=== PATIENT | female | born 1970 | race Caucasian/White ===

== ENCOUNTER 2025-03-07 09:03 | Outpatient (AMB) | payer OTHER, SELFPAY ==
--- NOTE | 2025-03-07 09:09 | A.SPINEOV_ITS ---
Vital Signs 03/07/25 09:16 Height 5 ft 5 in Weight 205 lb BMI 34.1 Intake Visit Reasons: sacroiliitis Intake Note: Ms. Calles is here today c/o Left sided leg pain. Database Marketing Manager Required: Yes Database Marketing Manager Services: Database Marketing Manager Present Database Marketing Manager Name: Rema Madrid LM Allergies No Known Allergies Allergy (Verified 03/07/25 09:16) Assessment & Plan Assessment & Plan (1) Lumbar radiculopathy: Code(s): M54.16 - Radiculopathy, lumbar region Category: Medical Plan Dear BIJAL Lopez, Thank you for referring Mary to our office today. She is a pleasant 54 year old female who comes in today for evaluation of left hip / leg pain. She reports this has been ongoing for about 2 years, and identifies an initial inciting incident of a work related injury. 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 This caused her severe acute low back pain shooting down her left lower extremity. She was subsequently evaluated in [facility] emergency department and referred to [facility] neurosurgery. She reports some relief of her left lumbar radiculopathy after being treated by [facility] neurosugery with microdiscectomy surgery. After surgery she had a recurrent of left low back / hip / leg pain. She was re- evaluated by [facility] neurosurgery who completed a re-do left L5-S1 microdiscectomy for recurrence of herniated disc. After this her left hip and leg pain persisted despite surgical attempts to resolve her pain. She therefore underwent Left SI joint injection with our colleagues at [facility] on 12/21/24 which provided 80% pain symptom relief x 1 week before return of symptoms. She also underwent left SI joint lateral branch block thereafter which provided 100% relief of her pain symptoms x 5 days. Left SI joint radiofrequency ablation was considered thereafter which was denied by her insurance company. She did have a left hip MRI which showed some small labral tears and some mild tendonopathy but did not show any other significant soft tissue / osseous pathology per the MRI of left hip completed at [place] on 11/14/24. When describing her pain today she states that it starts in her left posterior buttocks, shoots down her left posterior thigh, and travels all the way down to her left posterior calf / the bottom of her left foot. She experiences fairly severe posterior left calf cramping. She does report some burning / numbness associated with the pain. She has tried several different prescribed / OTC medications including Tylenol, no NSAIDs (on blood thinner, cannot take NSAIDs), Tizanidine, oral prednisone taper, short course Oxycodone, all without significant relief of smyptoms. PMH: Hx of blood clot found in liver, on Eliquis, Hx left L5-S1 microdiscectomy x 2 at [facility] (last surgery 09/17/24). HTN, Insomnia, Depression, Seasonal allergies, GERD. Social hx: Patient smokes about 8 cigarillos daily. Denies any other substance use. Medications: Gabapentin, Amlodipine, Zolpidem, Sertraline, Propanolol, Loratadine, Losartan, Acetaminophen, Omeprazole. Allergies: NKDA Physical exam: The patient has 4/5 strength with left-sided dorsiflexion and iliopsoas testing. The rest of her bilateral lower extremity strength is 5/5. She has no significant sensational deficits to light touch disclosed on examination. Her reflexes are 2+ intact. She ambulates with a slightly antalgic gait favoring the right side. (+) left-sided straight leg raise. (+) left SI joint compression test. (+) left-sided Andrew's. (-) Noe finger test. (-) Akhtar's. (-) clonus. Imaging review: MRI of the lumbar spine completed at [place] with gadolinium on 09/01/24 is a preoperative MRI before her recurrent disc herniation was operated on at [facility]. Therefore it is of very low utility for us. This shows a recurrent disc herniation at L5-S1 prior to surgery compression the left sided S1 nerve roots. Impression: Mary is a pleasant 54-year-old female who comes in today for evaluation of left hip and leg pain which has been persistent despite many different treatment attempts including multiple cortisone injections, and two microdiskectomy surgeries. When describing her pain it sounds like it is in a fairly classic S1 distribution on the left. This is highly concerning for recurrent disc herniation given that she had fairly severe compression of the left traversing S1 nerve root prior to surgery and has had had a recurrence of a disc herniation once already. Before attempting to begin discussion regarding SI joint fusion, or further interventions for the SI joint on the left hand side, I would like the patient to have a repeat lumbar MRI with gadolinium to evaluate for any continued nerve root compression on this side. If the MRI shows good decompression of the nerve roots, she may just have residual pain shooting down the left lower extremity, and we may consider subsequent conversations regarding SI joint treatment. However, we have to have a baseline postoperative lumbar MRI to ensure that there is not continued lumbar spine pathology contributing to her symptoms. It would be a shame to treat her left SI joint via fusion, then find out that she in fact has had a subsequent recurrent herniated disc. I will follow up with the patient once this MRI is complete. Thank you for allowing us to care for your patient. The total time spent with this visit with this patient was 45 minutes reviewing history, physical exam, MRI imaging review, and implementation of treatment plan or further diagnostic testing Harpreet Marcos MD,PhD [facility] Coding Level of Care Code New Pt Level 4 (45719) Diagnoses Lumbar radiculopathy M54.16
[2025-03-07 09:16] VITALS: BMI 34.1
--- OUTSIDE RECORDS SUMMARY | 2025-03-07 09:17 | XMS_ITS | Clinical Summary ---
Author Organization [facility] Address [address] [place] [address] Care Team Providers Care Adjunct Professor Of English Name Role Phone Jo Ann Falcon [facility] Primary Care Provider [phone] Surgical History Surgery Date Site/Laterality Comments TUBAL LIGATION PROCEDURE: HISTORICAL TUBAL LIGATION CHOLECYSTECTOMY PROCEDURE: CA CHOLECYSTECTOMY SECTION PROCEDURE: HISTORICAL DELIVERY CYSTOSCOPY 07/06/2018 Left PROCEDURE: HISTORICAL CYSTOSCOPY; COMMENT: LEFT URETEROSCOPY W/LASER LITHRIPSO AND STONE REMOVAL CYSTOSCOPY 07/06/2018 Right PROCEDURE: HISTORICAL CYSTOSCOPY; COMMENT: RIGHT SIDE ureteral dilation , right sided ureteral stent placement Medical History Medical History Date Comments HTN (hypertension) 1998 DX:HTN (hyper tension); COMMENT: on med Fibroid DX:Fibroid Ovarian cyst DX:Ovarian cyst Anxiety DX:Anxiety Depression DX:Depression History of kidney stones 2017 DX:Hist ory of kidney stones Family History Medical History Relation Name Comments Alzheimer's disease Mother Relation Name Status Comments Father Mother Social History Tobacco Use Types Packs/Day Years Used Date Smoking Tobacco: Every Day Smokeless Tobacco: Never Alcohol Use Standard Drinks/Week Comments No 0 (1 standard drink = 0.6 oz pur e alcohol) Comments Unknown Sex and Gender Information Value Date Recorded Sex Assigned at Not on file Legal Sex Female 7:34 PM EST Gender Identity Not on file Sexual Orientation Not on file Obstetrics History Plan of Treatment Health Maintenance Due Date Last Done Comments DTaP,Tdap,and Td Vaccines (1 - Tdap) 1991 Hepatitis B Vaccines (1 of 3 - 19+ 3-dose series) 1991 Pneumococcal Vaccine: 50+ Years (1 of 2 - PCV) 1991 Pneumococcal Vaccine: Pediatrics (0 to 5 Years) and At-Risk Patients (6 to 64 Years) (1 of 2 - PCV) 1991 Cervical Cancer Screening: P ap Smear 1993 Breast Cancer Screening 06/15/2021 06/15/20 19, 2018 Zoster Vaccines (1 of 2) 2022 Colorectal Cancer Screening: Colonoscopy 09/21/2022 Depression Screening 09/21/2022 HIV Screening 09/21/2022 Hepatitis C Screening 09/21/2022 Social Influencers of Health Screening 09/21/2022 COVID-19 Vaccine (2023-2 5 season) 2024 Influenza Vaccine (Season Ended) 2025 HIB Vaccines Aged Out No longer eligi ble based on patient's age to complete this topic HPV Vaccines Aged Out No longer eligi ble based on patient's age to complete this topic Hepatitis A Vaccines Aged Out No long er eligible based on patient's age to complete this topic IPV Vaccines Aged Out No longer eligi ble based on patient's age to complete this topic MMR Vaccines Aged Out No longer eligi ble based on patient's age to complete this topic Meningococcal ACWY Vaccine Aged Out N o longer eligible based on patient's age to complete this topic Meningococcal B Vaccine Aged Out No l onger eligible based on patient's age to complete this topic RSV Immunization Patients Under 20 months Aged Out No longer eligible b ased on patient's age to complete this topic Varicella Vaccines Aged Out No longer eligible based on patient's age to complete this topic Procedures Procedure Name Priority Date/Time Associated Diagnosis Comments IRAIDA SCREENING DIGITAL Routine 06/15/2019 2:40 PM EDT Other specified disorders of breast from Last 3 Months or Most Recently Relevant to Health Maintenance Results * IRAIDA SCREENING DIGITAL (06/15/2019 2:40 PM EDT) Anatomical Region Laterality Modality Mammography 06/15/2019 9:59 AM EDT Narrative 06/15/2019 2:40 PM EDT [facility] Diagnostic Imaging Department [address] [place] [id number] Patient: ??ARTEMIO CALLES ?/Age/Sex: 1970 - 49 - F Unit#: ??[id number] ? Location/Status: ??SPDIMAM/REG CLI ? Mnemonic/Ordering Site: ??DIGSC/SPMAM Ordering Physician: ??ELLY ROB MD [facility] Screening Digital - 06/15/19 - 1052 EXAM: [facility] Screening Digital EXAM DATE AND TIME: 06/15/2019 10:52 AM HISTORY: ??Screening. COMPARISON: ??05/21/18 TECHNIQUE: CC and MLO views of both breasts were obtained using full field digital mammography. Bilateral digital breast tomosynthesis was performed in the MLO projection. Computer aided detection with the Moasis 7.2-H was employed. TISSUE DENSITY: b. There are scattered areas of fibroglandular density. FINDINGS: A 13 mm round asymmetry is seen in the posterior left breast on the MLO and MLO tomosynthesis views. Spot compression, full 90 degree lateral and CC tomosynthesis views are recommended for further assessment. No grouped microcalcifications or areas of architectural distortion are seen. The skin and vascularity are unremarkable. IMPRESSION: 1. Left breast asymmetry, for which additional views are recommended. The patient will be called back. 2. Stable mammographic appearance of the right breast. No evidence of malignancy is seen. BI-RADS: ??Category 0: Incomplete - Need Additional Imaging Evaluation RECOMMENDATION(S): 1: Special mammographic view(s) needed LEFT 49075, [id number], [id number] Dictating Physician: ??MARCELA HERRERA MD Electronically Signed by: ??MARCELA HERRERA MD Dic Date/Time: ??06/15/19 1438 Sign date/Time: ??06/15/19 1440 Procedure Note Marcela Herrera - 10/09/2022 [facility] Diagnostic Imaging Department [address] [place] [id number] Patient: AMYARTEMIO MEJIA./Age/Sex: 1970 - 49 - F Unit#: [id number] Location/Status: [facility]/REG CLI Mnemonic/Ordering Site: DIGCT/[facility] Ordering Physician: ELLY ROB MD [facility] Screening Digital - 06/15/19 - 1052 EXAM: [facility] Screening Digital EXAM DATE AND TIME: 06/15/2019 10:52 AM HISTORY: Screening. COMPARISON: 05/21/18 TECHNIQUE: CC and MLO views of both breasts were obtained using fullfield digital mammography. Bilateral digital breast tomosynthesis was performedin the MLO projection. Computer aided detection with the Moasis 7.2-Hwas employed. TISSUE DENSITY: b. There are scattered areas of fibroglandular density. FINDINGS: A 13 mm round asymmetry is seen in the posterior left breast on the MLOand MLO tomosynthesis views. Spot compression, full 90 degree lateral and CC tomosynthesis views are recommended for further assessment. No grouped microcalcifications or areas of architectural distortion areseen. The skin and vascularity are unremarkable. IMPRESSION: 1. Left breast asymmetry, for which additional views are recommended.The patient will be called back. 2. Stable mammographic appearance of the right breast. No evidence of malignancy is seen. BI-RADS: Category 0: Incomplete - Need Additional Imaging Evaluation RECOMMENDATION(S): 1: Special mammographic view(s) needed LEFT [id number], [id number] 3340F, 7025F Dictating Physician: MARCELA HERRERA MD Electronically Signed by: MARCELA HERRERA MD Dic Date/Time: 06/15/19 1438 Sign date/Time: 06/15/19 1440 us Elly Rob MD IMG BI PROCEDURES Final R esult from Last 3 Months or Most Recently Relevant to Health Maintenance Care Teams Adjunct Professor Of English Relationship Specialty Start Date End Date Jo nAn Falcon FNP PCP - General Internal Medicine 05/26/18
== END 2025-03-07 10:28 | disposition home or self-care (01) ==
LOC: HO.HNS 09:04
PROVIDERS: PCP Internal Medicine; Referring Provider Nurse Practitioner Family; Visit Provider Physician Assistant
DX: M54.16 Radiculopathy, lumbar region (principal)
CPT/HCPCS: 99204

== ENCOUNTER → 2025-03-07 09:03 | Outpatient (BNVA) | payer OTHER, SELFPAY | PROVIDERS: PCP Internal Medicine; Visit Provider Physician Assistant | DX: M54.16 Radiculopathy, lumbar region (principal) | CPT/HCPCS: 99202 ==

== ENCOUNTER 2025-03-22 09:11 | Outpatient (REF) | payer OTHER, SELFPAY ==
--- NOTE | ~2025-03-22 | MR_ITS ---
EXAM: MRI lumbar spine without contrast TECHNIQUE: Multiplanar multisequence imaging was performed through the lumbar spine without contrast. INDICATION: Lumbar radiculopathy PRIOR: None FINDINGS: 5 non-rib bearing lumbar segments are assumed for numbering purposes. If level specific intervention is planned, correlate with an x-ray to ensure concordant numbering. Marrow and end-plates: There are no marrow replacing lesions. Medications 2 signal changes are present in the anterior-inferior L4. Modic 1 signal change is present at L5-S1. Alignment: L4-5 demonstrates subtle Soft tissues: Paraspinal soft tissues and major vascular structures are unremarkable. Impression postsurgical scarring in the soft tissues dorsal to L5. Conus: The termination of conus medullaris is within normal limits at the level of lower T12. T12-L1: There is no disc bulge, herniation, spinal stenosis, or foraminal narrowing. L1-L2: There is subtle disc bulge without spinal stenosis or foraminal narrowing. Disc herniation. L2-L3: There is disc desiccation and central annular fissuring without spinal stenosis or foraminal narrowing. L3-L4: There is no disc bulge, herniation, spinal stenosis, or foraminal narrowing. There is mild facet degeneration. L4-L5: There is disc desiccation and mild loss of disc height. There is broad-based disc bulge. Facet joints. There is moderate right and mild left subarticular zone narrowing with possible compression of the right L5 nerve root. There is mild bilateral foraminal narrowing. L5-S1: There is disc desiccation, loss of disc height with broad-based disc bulge and focal left subarticular zone extrusion encroaching on the left S1 nerve root. There is mild facet degeneration and trace fluid in both facet joints. There is no right and mild to moderate left foraminal narrowing. MR/MR lumbar spine wo con IMPRESSION: L4-L5: There is moderate right and mild left subarticular zone narrowing with possible compression of the right L5 nerve root. There is mild bilateral foraminal narrowing. L5-S1: There is broad-based disc bulge and focal left subarticular zone herniation encroaching on the left S1 nerve root. There is mild to moderate left foraminal narrowing. Examination was ordered with IV contrast, but IV access could not be obtained. Electronically signed by: Radhames Cheney MD 03/22/2025 12:23 PM EDT RP
== END 2025-03-22 09:12 | disposition home or self-care (01) ==
LOC: HO.MRI 09:11
PROVIDERS: PCP Internal Medicine; Visit Provider Physician Assistant
DX: M54.16 Radiculopathy, lumbar region (principal)
CPT/HCPCS: 72148

== ENCOUNTER → 2025-03-22 09:11 | Outpatient (BNV) | payer OTHER, SELFPAY | PROVIDERS: PCP Internal Medicine; Visit Provider Radiology Diagnostic Radiology | DX: M51.26 Other intervertebral disc displacement, lumbar region (principal); M99.63 Osseous and subluxation stenosis of intervertebral foramina of lumbar region | CPT/HCPCS: 72148 ==

== ENCOUNTER 2025-03-30 08:35 | Outpatient (AMB) | payer OTHER, SELFPAY ==
--- OUTSIDE RECORDS SUMMARY | 2025-03-30 08:52 | XMS_ITS | Data Portability ---
Author Organization [place] - [facility], [facility] Address [address] [place] [address] Assessment Encounter Date Assessment Date Assessment LastModified by Organization Details LastModified Time 01/08/2024 01/08/2024 I am seeing the patient today under the supervision of Bethanie Mayers PA-C and Dr. Wilson who was available but who did not see the patient. The patient is Arabic-speaking and electrical repairer was utilized. HPI: 53-year-old female who last saw Bethanie 10/06/23. Reports low back and left leg pain has no improved or gotten worse since previous visit. She reports her pain as an 8 out of 10. Associated tightness and weakness in an L5/S1 distribution. It continues to disrupts her balance. No bowel or bladder complaints and no right leg pain described. PFMSH and ROS has been reviewed, updated and is located in the patient? s chart. TREATMENT: No previous back and neck surgery. Physical therapy ineffective. No injection. Endorses gabapentin has helped somewhat but pain returns if she does not take it. WORK STATUS: Unemployed, requested documentation for disability be completed today. i directed her to medical records to get the form completed appropriately. IMAGING: None indicated today PHYSICAL EXAMINATION: On physical exam, well-appearing, looking stated age individual arises from the seated position without difficulty. Head is centered over the pelvis. Range of motion of the lumbar spine is 60% of normal. Hip and knee range of motion is full, but she endorses pain in her back with hip ROM. Seated SLR positive on left negative on right . Lower extremity motor strength is 5/5 and sensation intact distally. MRI lumbar spine reviewed at last visit in the office with the patient reveals a small left subarticular disc protrusion at L5-S1 which abuts and displaces the left S1 nerve root without impingement. ASSESSMENT & PLAN: 53-year-old female with low back pain and radiating left leg pain numbness weakness CONSISTENT with an lumbar radiculopathy. MRI findings above. The patient has had no improvement since her last visit. We discussed as the gabapentin 100mg TID is helping but not completely she could gradually increase her dose to 100 mg AM, 100 mg PM and 200 mg QHS, increasing each timed dose by 100 mg PRN for incomplete response not to increase above 200 mg TID. The patient at this time has not been seen by pain management for injection therapy we discussed this as next steps for her treatment as previous PT was ineffective. patient was in agreement and a referral to [facility] was completed today. Plan to follow up in 4 months to assess effectiveness of injection therapy. [email or web address] Not available 01/08/2024 11:38:57 Plan of Treatment Reminders Order Date Submit Date Provider Last Modified By Organization Details Last Modified Time Details Appointments None recorded. Lab None recorded. Referral pain management referral - eval for injections 2023 024 [facility], [address] [place] [address], [phone], 07:45:25 Procedures None recorded. Surgeries None recorded. Imaging None recorded. Medication Orders gabapentin 100 mg capsule 2023 024 [id number], [address] [place], [address], 12:39:58 Patient TargetsNo targets recorded. Patient InstructionsNo instructions recorded. Reason for Referral Pain Management Referral for Low back pain eval for injections Referring Physician: Bethanie Mayers, Orthopedic Surgery, [id number] Encounter Date: 01/08/2024 Results Created Date Observation Date Name Description Value Unit Range Abnormal Flag Note LastModifiedBy Organization Detail LastModifiedTime 06/18/20 24 06/20/2023 imagi ng/di agnos tic resul t No observ ation record ed. [email or web address] Not Available 05/22 07:27:44 06/18/20 24 09/30/2023 imagi ng/di agnos tic resul t No observ ation record ed. [email or web address] Not Available 05/22 07:27:45 Result Notes None recorded. Medical Equipment None Reported. Allergies No known drug allergies Medications Name Sig Start Date Stop Date Status Note LastModified by Organization Details LastModified Time d-1000 extra strength 25 mcg (1000 ut) tabs active Not Available Not Available Not Available cyclobenzap rine 10 mg tablet TOME ANTONIETA TABLETA TUSHAR VECES AL D A CUANDO SEA NECESARIO PARA EL DOLOR 01/07 completed Not Available Not Available Not Available Lidocaine Viscous 2 % mucosal solution 1 APPLICATI ON TOPICALLY 4 TIMES A DAY NEEDED FOR MOUTH SORE PAIN active Not Available Not Available No t Available prednisone 20 mg tablet TOME DOS TABLETAS POR V A ORAL TODOS LOS D 01/07 completed Not Available Not Available Not Available peg-electro lyte solution 420 gram oral solution TOME SEG N LO INDICADO PER MD active Not Available Not Available No t Available tramadol 50 mg tablet TOME ANTONIETA TABLETA CADA DOCE HORAS CUANDO SEA NECESARIO FOR BACK PAIN NOT IMPROVED WITH TYLENOL 01/07 completed Not Available Not Available Not Available acetaminoph en 500 mg tablet TAKE 2 TABS BY MOUTH 3 TIMES A DAY NEEDED FOR BACK PAIN active Not Available Not Available No t Available methocarbam ol 750 mg tablet TOME ANTONIETA TABLETA POR V A ORAL CADA SEIS HORAS 01/07 completed Not Available Not Available Not Available baclofen 10 mg tablet TOME ANTONIETA TABLETA POR V A ORAL CADA OCHO HORAS PARA DOLOR O ESPASMO 01/07 completed Not Available Not Available Not Available amlodipine 10 mg tablet TOME ANTONIETA TABLETA POR V A ORAL TODOS LOS D active Not Available Not Available No t Available diclofenac sodium 25 mg tablet,jeison yed release TOME ANTONIETA TABLETA POR V A ORAL DOS VECES AL D A 01/07 completed Not Available Not Available Not Available omeprazole 20 mg capsule,del ayed release active Not Available Not Available Not Available hydroxyzine HCl 25 mg tablet TOME ANTONIETA TABLETA POR V A ORAL A DIARIO AL ACOSTARSE CUANDO SEA NECESARIO FOR INSOMNIA 01/07 completed Not Available Not Available Not Available zolpidem 5 mg tablet TOME ANTONIETA TABLETA TODOS LOS D AL ACOSTARSE active Not Available Not Available No t Available gabapentin 100 mg capsule TOME 1 CAPSULA POR VIA ORAL TUSHAR VECES AL ANTOINETTE 2023 active Not Available Not Available Not Avai lable ipratropium bromide 42 mcg (0.06 %) nasal spray 2 SPRAYS IN EACH NOSTRIL 4 TIMES A DAY,X5 DAYS NEEDED FOR COLD SYMPTOMS active Not Available Not Available No t Available propranolol 20 mg tablet TOME ANTONIETA TABLETA POR V A ORAL DOS VECES AL D A FOR MIGRAINE PROPHYLAX IS & BLOOD PRESSURE active Not Available Not Available No t Available losartan 100 mg tablet TOME ANTONIETA TABLETA TODOS LOS D active Not Available Not Available No t Available sertraline 50 mg tablet TOME ANTONIETA TABLETA TODOS LOS D EN LA MA YENI active Not Available Not Available No t Available loratadine 10 mg tablet TOME ANTONIETA TABLETA POR V A ORAL TODOS LOS D FOR ALLERGIES active Not Available Not Available No t Available Murine Ear 6.5 % drops PLACE 5 DROPS IN RIGHT EAR 2 TIMES A DAY FOR 7 DAYS DIRECTED ON PACKAGE LABELING active Not Available Not Available No t Available naproxen 500 mg tablet TOME ANTONIETA TABLETA DOS VECES AL D A 01/07 completed Not Available Not Available Not Available diazepam 5 mg tablet TOME ANTONIETA TABLETA TODOS LOS D 01/07 completed Not Available Not Available Not Available naproxen 375 mg tablet,jeison yed release 01/07 completed Not Available Not Available Not Available oxycodone 5 mg tablet TOME ANTONIETA TABLETA POR V A ORAL CADA SEIS HORAS PARA DOLOR CEDRIC CUANDO SEA NECESARIO 01/07 completed Not Available Not Available Not Available Vitamin D3 25 mcg (1,000 unit) tablet TOME ANTONIETA TABLETA TODOS LOS D active Not Available Not Available No t Available Eliquis 2.5 mg tablet TOME ANTONIETA TABLETA POR V A ORAL DOS VECES AL D A SEG N LO INDICADO active Not Available Not Available No t Available Vitals Date Recorded Body height Body mass index (BMI) Body weight Provider Name and Address Organization Details Last Updated DateTime 01/08/2024 165.1 cm 33.3 kg/m2 61335.47 g Earline valdez [place] - [facility] 01/08/2024 10:29:34 Social History None recorded. Functional Status None recorded. Mental Status None recorded. Family History Nothing Reported. Medical History No medical history recorded. Gynecological HistoryNo gynecological history recorded. Obstetrics History GPAL:G 0 P 0 0 0 0 Past Encounters Encounter ID Performer Location Encounter Start Date Encounter Closed Date Diagnosis/Indication Diagnosis SNOMED-CT Code Diagnosis ICD10 Code Diagnosis Note [id number] MAUREEN Campbell [address] [place] [address] 01/08/2024 10:06:55 01/28/2024 15:06:59 Low back pain 587432863 M54.50 Health Concerns Section Related Observation LastModified by Organization Detai ls LastModified Time None Recorded Concern Status LastModified by Organization Details LastModified Time None Recorded Advance Directives Directive None Recorded Payers Encounter Date Sequence Insurance Name Policy Number Policy Farmer Covered Member ID Farmer Member ID Guarantor Name 01/08/2024 1 [facility] (MEDICAID HMO) [id number] Mary Calles [id number] Mary Calles OBGyn Episode No OBEpisode recorded.
--- NOTE | 2025-03-30 12:54 | A.SPINEOV_ITS ---
Intake Visit Reasons: MRI follow up Intake Note: Ms. Calles is here to F/u on the results to her MRI. Geriatric Case Manager Required: Yes Geriatric Case Manager Name: Rema Madrid LM Allergies No Known Allergies Allergy (Verified 03/30/25 12:54) Assessment & Plan Assessment & Plan (1) Lumbar radiculopathy: Code(s): M54.16 - Radiculopathy, lumbar region Category: Medical Plan Mary is a pleasant 54-year-old female comes in today for follow-up after having her MRI completed. I reviewed her images alongside the attending neurosurgeon Dr. Marcos. After reviewing the axial T1 images, he does not believe that the left-sided S1 nerve root is the causative agent of her pain. It makes much more sense that the left-sided SI joint would be her primary pain generator, given that she had excellent relief with multiple rounds of left- sided SI injections. Therefore, Dr. Marcos is willing to offer the patient a left-sided SI joint fusion to address her pain. We extensively discussed this procedure during this office visit today, utilizing the spine models in office. I answered all the questions the patient had to the best of my ability. The main rate limiting factor regarding her surgery is that she will need to be on crutches for 3 weeks after surgery, in his currently living on a 4th story apartment that has no elevator. She has to climb up 4 flights of stairs to get to her apartment. Therefore we discussed the possibility of having her transfe rred to a residential facility after her surgery if she is unable to find somewhere else to stay postoperatively. We will submit to her insurance company for left-sided SI joint fusion. When this is approved, we will need to discuss with our colleagues in case management and figure out how we can have her transferred to rehab after surgery. Harpreet Marcos MD,PhD [facility] Coding Level of Care Code Global (29111) Diagnoses Lumbar radiculopathy M54.16
== END 2025-03-30 13:28 | disposition home or self-care (01) ==
LOC: HO.HNS 08:35
PROVIDERS: PCP Internal Medicine; Visit Provider Physician Assistant
DX: M54.16 Radiculopathy, lumbar region (principal)
CPT/HCPCS: 99214

== ENCOUNTER → 2025-03-30 08:35 | Outpatient (BNVA) | payer OTHER, SELFPAY | PROVIDERS: PCP Internal Medicine; Visit Provider Physician Assistant | DX: M54.16 Radiculopathy, lumbar region (principal) | CPT/HCPCS: 99212 ==

== ENCOUNTER 2025-06-15 09:35 | Day surgery (SDC) | payer OTHER, SELFPAY ==
--- OUTSIDE RECORDS SUMMARY | 2025-05-18 15:15 | XMS_ITS | Clinical Summary ---
Author Organization [facility] Address [address] [place] [address] Care Team Providers Care Facilities Technician Name Role Phone Jo Ann Falcon [facility] Primary Care Provider [phone] Surgical History Surgery Date Site/Laterality Comments TUBAL LIGATION PROCEDURE: HISTORICAL TUBAL LIGATION CHOLECYSTECTOMY PROCEDURE: GA CHOLECYSTECTOMY SECTION PROCEDURE: HISTORICAL DELIVERY CYSTOSCOPY 07/06/2018 [...] Years (1 of 2 - PCV) 1991 Cervical Cancer Screening: P ap Smear 1993 Breast Cancer Screening 06/15/2021 06/15/20 19, 2018 Zoster Vaccines (1 of 2) 2022 Colorectal Cancer Screening: Colonoscopy 09/21/2022 HIV Screening 09/21/2022 Hepatitis C Screening 09/21/2022 Social Influencers of Health Screening 09/21/2022 COVID-19 Vaccine (1 - 2023-2 5 season) 2024 Depression Screening 10/20/2024 Influenza Vaccine (#1) 2025 HIB Vaccines Aged Out No longer [...] Procedure Name Priority Date/Time Associated Diagnosis Comments ANGELICA SCREENING DIGITAL Routine 06/15/2019 2:40 PM EDT Other specified disorders of breast from Last 3 Months or Most Recently Relevant to Health Maintenance Results * ANGELICA SCREENING DIGITAL (06/15/2019 2:40 PM EDT) Anatomical Region Laterality Modality Mammography 06/15/2019 9:59 AM EDT Narrative 06/15/2019 2:40 PM EDT Diagnostic Imaging Department [address] [place], [place] [id number] Patient: ARTEMIO CALLES/Age/Sex: 1970 - 49 - F Unit#: [id number] Location/Status: SPDIMAM/REG CLI Mnemonic/Ordering Site: [facility] Ordering Physician: ELLY ROB MD Angelica Screening Digital - 06/15/19 - 1052 EXAM: Angelica Screening Digital EXAM DATE AND TIME: 06/15/2019 10:52 AM HISTORY: Screening. COMPARISON: 05/21/18 TECHNIQUE: CC and MLO views of both breasts were obtained using full field digital mammography. Bilateral digital breast tomosynthesis was performed in the MLO projection. Computer aided detection with the [email or web address] was employed. TISSUE DENSITY: b. There are [...] RECOMMENDATION(S): 1: Special mammographic view(s) needed LEFT [id number], [id number] 3340F, 7025F Dictating Physician: MARCELA HERRERA MD Electronically Signed by: MARCELA HERRERA MD Dic Date/Time: 06/15/19 1438 Sign date/Time: 06/15/19 1440 Procedure Note Marcela Herrera - 10/09/2022 Diagnostic Imaging Department [address] [place], [place] [id number] Patient: ARTEMIO CALLES /Age/Sex: 1970 - 49 - F Unit#: [id number] Location/Status: SPDIMAM/REG CLI Mnemonic/Ordering Site: [facility] Ordering Physician: ELLY ROB MD [facility] Screening Digital - 06/15/19 - 1052 EXAM: [facility] Screening Digital EXAM DATE AND TIME: 06/15/2019 10:52 AM HISTORY: Screening. COMPARISON: 05/21/18 TECHNIQUE: CC and MLO views of both breasts were obtained using fullfield digital mammography. Bilateral digital breast tomosynthesis was performedin the MLO projection. Computer aided detection with the [employer] employed. TISSUE DENSITY: b. There are [...] RECOMMENDATION(S): 1: Special mammographic view(s) needed LEFT [id number], 41763 3340F, 7025F Dictating Physician: MARCELA HERRERA MD Electronically Signed by: MARCELA HERRERA MD Dic Date/Time: 06/15/19 1438 Sign date/Time: 06/15/19 1440 Elly Rob MD IMG BI PROCEDURES Final R esult from Last 3 Months or Most Recently Relevant to Health Maintenance Care Teams Facilities Technician Relationship Specialty Start Date End Date Jo Ann Falcon FNP PCP - General Internal Medicine 05/26/18
[2025-06-13 08:05] VITALS: BMI 35.5
--- NOTE | 2025-06-14 09:37 | HO.ANESPROP2 ---
Documented by User: Kenya Ramirez NP 06/14/25 09:38 HPI - Anesthesia Eval Consult details Narrative: 55yo F for Left Sacroiliac Joint Fusion Per PAT 03/2025: No recent illness No CP/SOB with limited activity s/p left L5/S1 microdiscectomy in March and August 2024 at [facility] GERD: ppi controls Hx portal vein thrombosis ~ 2019. Completed course of eliquis, no long on OAC. No venous thrombus on CT 12/2024 Transaminitis d/t 13 lb weight gain per 03/2025 PCP note. Paraesophageal hernia Type III PMFSH Active Problems Active Problems: All Active Problems Lumbar radiculopathy (Acute) Past Medical History Medical History (Updated 04/13/25 @ 13:08 by Tessie Godinez RN) Vitamin D deficiency Urolithiasis Thyroid nodule Severe obesity Seasonal allergies Portal vein thrombosis Paraesophageal hernia 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 Migraine HTN (hypertension) Hemorrhoid Helicobacter pylori gastritis Fatty liver Hiatal hernia Dysphagia Depression Cigarette smoker Back pain GERD (gastroesophageal reflux disease) Chronic constipation Surgical History Surgical History (Updated 04/14/25 @ 10:01 by Tessie Godinez RN) H/O colonoscopy Hx of cervical polypectomy Hx of lithotripsy Hx of cholecystectomy Hx of section History of esophagogastroduodenoscopy (EGD) Hx of microdiscectomy Social History Social History Are you a primary day care center director to a significant other at home: No Do you presently have visiting nurse or other home services: No Patient Tobacco Use Status: Former Tobacco user Tobacco use type: Cigarette Cigarettes Per Day: 10 Patient Interested in Nicotine Replacement: No Patient Given Instructions on How to Stop Smoking: No Second Hand Smoke Exposure: No Use of substances other than those prescribed or required for medical reasons: No Have you been hit, kicked, punched, or otherwise hurt by someone within the past year? If so, by whom?: No Are you DNR?: No Advance Directives: No Advance Directives Information Provided: Yes Advance Directives on File: No Patient : No : No Poor oral hygiene: No Meds Allergies Allergy/AdvReac Type Severity Reaction Status Date / Time No Known Allergies Allergy Verified 03/30/25 12:54 Home Medications ?Medication ?Instructions ?Recorded ?Confirmed ?Last Taken ?Type acetaminophen 500 mg tablet 1,000 mg PO TID PRN low back pain 04/13/25 06/15/25 Unknown History amlodipine 10 mg tablet 10 mg PO DAILY 04/13/25 06/15/25 Unknown History celecoxib 50 mg capsule 50 mg PO DAILY PRN Pain 04/13/25 06/15/25 Unknown History gabapentin 300 mg capsule 600 mg PO TID PRN pain 04/13/25 06/15/25 Unknown History hydroxyzine HCl 25 mg tablet 25 mg PO BID 04/13/25 06/15/25 Unknown History loratadine 10 mg tablet 10 mg PO DAILY PRN Allergy Symptoms 04/13/25 06/15/25 Unknown History losartan 100 mg tablet 100 mg PO DAILY 04/13/25 06/15/25 Unknown History metoprolol succinate 25 mg 25 mg PO DAILY 04/13/25 06/15/25 Unknown History tablet,extended release 24 hr omeprazole 20 mg capsule,delayed 20 mg PO BID 04/13/25 06/15/25 Unknown History release quetiapine 25 mg tablet 25 mg PO BEDTIME insomnia 04/13/25 06/15/25 Unknown History sennosides 8.6 mg tablet (senna) 17.2 mg PO BEDTIME PRN constipation 04/13/25 06/15/25 Unknown History sertraline 100 mg tablet 150 mg PO BEDTIME depressive 04/13/25 06/15/25 Unknown History disorder Exam Height,Weight and Vital Signs: Height 5 ft 4.96 in Weight 96.6 kg Pertinent Lab Results Pertinent Lab Results: 01/13/2025 11:03 EDT ? ? ?WBC ? 6.4 k/mm3 ? Sodium ?139 mmol/L ? Potassium ? 3.8 mmol/L ? Chloride ?104 mmol/L ? Bicarbonate Level ? 24 mmol/L ? Anion Gap ? 11 mmol/L ?Glucose Level ? 107 mg/dL ?H? BUN ? 14 mg/dL ? Creatinine-Blood ?0.93 mg/dL ? Estimated GFR Creatinine ?74 ML/MIN/1.73 M2 ? Calcium ? 9.8 mg/dL ? Protein, Total ?6.9 Gm/dL ? Albumin ? 4.2 Gm/dL ? AG Ratio ?1.6 ? Alkaline Phosphatase ? ? ?79 units/L ? Lipase, Serum/Plasma ? ? ?25 units/L ?AST (SGOT) ?82 units/L ?H?ALT (SGPT) ?123 units/L ?H?Bilirubin, Total ?1.3 mg/dL ?H? High Sensitivity Troponin (HSTnT) ? <6 ng/L ? Narrative Narrative: EKG 12/2024 Ventricular Rate: 93 BPM Atrial Rate: 93 BPM P-R Interval: 168 ms QRS Duration: 74 ms Q-T Interval: 362 ms QTC Calculation(Bazett): 450 ms P Loring: 47 degrees R Loring: 7 degrees T Loring: 35 degrees Normal sinus rhythm Normal ECG When compared with ECG of 13-Aug-2024 15:17, No significant change was found Confirmed by Uri Cormier ([id number]) on 01/13/2025 11:54:[address] Abdomen 12/2024 IMPRESSION: 1. No evidence of an acute process. 2. Moderate-sized type III paraesophageal hernia. 3. Diffuse hepatic steatosis. 4. Small right ovarian cysts are likely functional. 5. Nonobstructing tiny right renal calculus. 6. Other chronic findings as noted. Stomach, small bowel, and large bowel: Moderate type III paraesophageal hernia. The remaining stomach is normal. The small and large bowel are normal in caliber. No evidence of obstruction or surrounding inflammation. Airway Mallampati Class: II TM Dist: >3cm Neck ROM: Full Partial: Upper and Lower Heart: RRR Lungs: CTAB Assessment and Plan Assessment Anesthesia Assessment: Chart Reviewed Documented by User: Judy Colin MD 06/15/25 10:07 [facility] Past Medical History Medical History (Updated 04/13/25 @ 13:08 by Tessie Godinez, RN) Vitamin D deficiency Urolithiasis Thyroid nodule Severe obesity Seasonal allergies Portal vein thrombosis Paraesophageal hernia 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 Migraine HTN (hypertension) Hemorrhoid Helicobacter pylori gastritis Fatty liver Hiatal hernia Dysphagia Depression Cigarette smoker Back pain GERD (gastroesophageal reflux disease) Chronic constipation Family History Family history of problems with anesthesia: No Surgical History Surgical History (Updated 04/14/25 @ 10:01 by Tessie Godinez, RN) H/O colonoscopy Hx of cervical polypectomy Hx of lithotripsy Hx of cholecystectomy Hx of section History of esophagogastroduodenoscopy (EGD) Hx of microdiscectomy History of Problems with Anesthesia: No Social History Social History Are you a primary day care center director to a significant other at home: No Do you presently have visiting nurse or other home services: No Patient Tobacco Use Status: Former Tobacco user Tobacco use type: Cigarette Cigarettes Per Day: 10 Patient Interested in Nicotine Replacement: No Patient Given Instructions on How to Stop Smoking: No Second Hand Smoke Exposure: No Use of substances other than those prescribed or required for medical reasons: No Have you been hit, kicked, punched, or otherwise hurt by someone within the past year? If so, by whom?: No Are you DNR?: No Advance Directives: No Advance Directives Information Provided: Yes Advance Directives on File: No Patient : No : No Poor oral hygiene: No Meds Allergies Allergy/AdvReac Type Severity Reaction Status Date / Time No Known Allergies Allergy Verified 03/30/25 12:54 Home Medications ?Medication ?Instructions ?Recorded ?Confirmed ?Last Taken ?Type acetaminophen 500 mg tablet 1,000 mg PO TID PRN low back pain 04/13/25 06/15/25 Unknown History amlodipine 10 mg tablet 10 mg PO DAILY 04/13/25 06/15/25 Unknown History celecoxib 50 mg capsule 50 mg PO DAILY PRN Pain 04/13/25 06/15/25 Unknown History gabapentin 300 mg capsule 600 mg PO TID PRN pain 04/13/25 06/15/25 Unknown History hydroxyzine HCl 25 mg tablet 25 mg PO BID 04/13/25 06/15/25 Unknown History loratadine 10 mg tablet 10 mg PO DAILY PRN Allergy Symptoms 04/13/25 06/15/25 Unknown History losartan 100 mg tablet 100 mg PO DAILY 04/13/25 06/15/25 Unknown History metoprolol succinate 25 mg 25 mg PO DAILY 04/13/25 06/15/25 Unknown History tablet,extended release 24 hr omeprazole 20 mg capsule,delayed 20 mg PO BID 04/13/25 06/15/25 Unknown History release quetiapine 25 mg tablet 25 mg PO BEDTIME insomnia 04/13/25 06/15/25 Unknown History sennosides 8.6 mg tablet (senna) 17.2 mg PO BEDTIME PRN constipation 04/13/25 06/15/25 Unknown History sertraline 100 mg tablet 150 mg PO BEDTIME depressive 04/13/25 06/15/25 Unknown History disorder Assessment and Plan Assessment Anesthesia Assessment: Anesthesia Plan Discussed Final Anesthetic Review Family History of Problems with Anesthesia: No History of Problems with Anesthesia: No NPO: Yes ASA Class: III Final Preanesthetic Review: No Changes in Pt Med Stat, Meds/Allgs Chart Reviewed and Consent Obtained/Reviewed Patient Risk: Intermediate Procedure Risk: Intermediate Anesthetic Plan Anesthetic Plan: GA Disposition: Standard PACU
[2025-06-15] VITALS (10 sets, daily range): BP systolic 123–154; BP diastolic 70–109; PULSE 73–86; RESP 16–18; TEMP 36.1–36.4; O2SAT 92–98
--- NOTE | ~2025-06-15 | FL_ITS ---
EXAMINATION: FL GUIDANCE ONLY HISTORY: SI JOINT FUSION COMPARISON: None available. TECHNIQUE: Fluoroscopy time: 38.9 seconds. Cumulative Dose: 29.292 mGy. DAP: 9.0368 mGym2 Images: 2. FINDINGS: Fluoroscopic spot films of the pelvis demonstrate a needle in the region of the left sacroiliac joint. FL/FL guidance in OR IMPRESSION: Fluoroscopy during procedure. Please see procedure report for additional information. Electronically signed by: Ismael Hoffmann MD 06/15/2025 03:03 PM EDT
--- NOTE | 2025-06-15 07:06 | MHC.SHP ---
Pre-Procedural Eval Section A - 24 Hr Update-Section A only Date of Service: 06/15/25 Section B - Complete if H&P > 30 days Chief Complaint: Radiculopathy, lumbar region Allergies: Allergies Allergy/AdvReac Type Severity Reaction Status Date / Time No Known Allergies Allergy Verified 03/30/25 12:54 Review of Systems Sugical H&P ROS: Negative: Constitution, Cardiovascular, Respiratory, Neurological, Psychiatric, Hem-Onc, Allergic/Immunologic, Gastrointestinal, Genitourinary, Musculoskeletal, Integumentary, Endocrine and Eyes/Ears/Nose/Throat Exam Surgical H&P Exam: Not Evaluated: HEENT, Not Evaluated: Heart, Not Evaluated: Lungs, Not Evaluated: Extremities, Not Evaluated: Abdomen, Not Evaluated: Skin and Not Evaluated: Neurological Exam Comment: Patient is awake, alert, in no acute distress. Proposed surgical incision site is clean, dry, with no signs of recent trauma. Plan Diagnosis/Plan: Unchanged I have reviewed the history and physical and performed a pertinent physical examination on my patient. No changes have occurred unless specified. Plan remains the same, Left SIJ fusion. Time Spent With Patient Time: Total time managing care of this patient today __5__ minutes.
[2025-06-15] MEDS: Lactated Ringers 1,000 ML 100 ML IVCONT (11:50)
--- NOTE | 2025-06-15 15:11 | P.OP_ITS ---
Operative Note Operative Note Date of Service: 06/15/25 Narrative: Preoperative diagnosis: Left Sacroiliitis Postoperative diagnosis: Same Operative procedure: Left sacroiliac joint fusion with 1 allograft implant Surgeon: Vidal Marcos MD, PhD Billboard Poster: Harpreet Bonilla PA-C Anesthesia: General Description of procedure: The patient is suffering from left SI sacroiliitis refractory to nonoperative management. The patient has tried and failed all forms of conservative manage med except for an excellent short-term response to a sacroiliac joint injection. The sacroiliac joint was confirmed to be the pain generator after repeated pain blocks. The patient was offered surgical treatment with fixation and arthrodesis of the SI joint. The patient was brought to the operating room and endotracheally intubated. The patient was turned in a prone position on [place] spine table. Prepping and draping was done followed by a time-out. A C-arm was alternately positioned for lateral, oblique oblique and pelvic inlet and outlet projections througout the procedure. Skin markings were made for the anticipated position of the implant. A 2.5 cm longitudinal skin incision was made. A guide pin was inserted in an outlet oblique image for guidance follow-up insertion of dilator and working cannula. This was secured by placing an anchor pin into the ilium. Consideration was taken to cut channels utilizing a series of drills for decortication and internal fixation device placement. The implant was inserted such that it passed through the ilium, across the sacroiliac joint and into the sacrum, thus transfixing the sacroiliac joint. Proper positioning was confirmed on lateral fluoroscopy. The implant was packed with autologous bone collected from remain of the sacrum and ilium. Additional graft material was inserted into the channel void following the implant. The instruments were withdrawn. Upon completion, final images were obtained that showed a satisfactory position of the implant. Hemostasis was done. The incision was closed with an 0 Vicryl to fashion a 3-0 Vicryl subdermal layer after injecting Marcaine. Dermabond was used to approximate the surgeon. All sponge and needle counts were correct. Patient was extubated and transported in a stable condition to recovery room. Estimated blood loss: 40 mL Complications: None Disposition: Discharge to home
--- NOTE | 2025-06-15 16:11 | PM.DS ---
DS: Providers Provider Date of Service: 06/15/25 Date of discharge: 06/15/25 Primary care physician: Elly Rob DS: Summary Time Attestation Discharge Coordination Time (in mins): 12 Quality: Safe Use of Opioids Does Pt have an Active Cancer Diagnosis on the Problem List?: No Quality: Stroke Does the patient have a stroke diagnosis?: No Physical Exam Vital Signs: Vital Signs: Last Vital Signs Temp 97.4 F 06/15/25 15:06 Pulse 78 06/15/25 15:50 Resp 16 06/15/25 15:50 BP 147/91 H 06/15/25 15:50 Pulse Ox 93 06/15/25 15:50 O2 Del Method Room Air 06/15/25 15:50 O2 Flow Rate 2 06/15/25 15:20 BMI result Body Mass Index 35.5 Discharge Plan Discharge Patient Disposition: Home, Self-Care Referrals: Elly Rob [Primary Care Provider, Internal Medicine] - 1 Week Discharge Medications: New oxycodone 5 mg tablet 5 mg PO Q6H PRN (Reason: pain) Qty: 30 0RF Rx Instructions: Partial Fill upon patient request. Continued quetiapine 25 mg tablet 25 mg PO BEDTIME sennosides [senna] 8.6 mg tablet 17.2 mg PO BEDTIME PRN (Reason: constipation) sertraline 100 mg tablet 150 mg PO BEDTIME acetaminophen 500 mg tablet 1,000 mg PO TID PRN (Reason: low back pain) amlodipine 10 mg tablet 10 mg PO DAILY gabapentin 300 mg capsule 600 mg PO TID PRN (Reason: pain) omeprazole 20 mg capsule,delayed release(DR/EC) 20 mg PO BID hydroxyzine HCl 25 mg tablet 25 mg PO BID metoprolol succinate 25 mg tablet extended release 24 hr 25 mg PO DAILY losartan 100 mg tablet 100 mg PO DAILY loratadine 10 mg tablet 10 mg PO DAILY PRN (Reason: Allergy Symptoms) Held celecoxib 50 mg capsule 50 mg PO DAILY PRN (Reason: Pain) Hold Instructions: Resume on 06/16/25. Discharge Orders: Discharge Order (Routine); Ordered 06/15/25 Ordered By: Harpreet Bonilla Diet: Advance to usual diet Activity on Discharge: As tolerated Activity Restrictions/Additional Instructions: After your SI joint fusion surgery we ask you to observe the following restrictions/guidelines: Activity: It is normal to feel some discomfort as you increase your activity, but that will improve with time. We ask you avoid heavy lifting or acitivities that cause pain. As a general rule, 8lbs is a safe limit for lifting right after surgery. We ask you to stay off your [] leg after surgery in order to help the SI joint fuse. Please use crutches or walker. You may return to driving when you are off narcotics (such as vicodin, oxycodone, dilaudid, etc), and you are back to normal functional capacity. If you have any concerns please check with office before driving. Return to work is specific to each patient and each surgery, so please speak with your doctor/PA at first follow up. Please bring paperwork such as FMLA at that time if you need it filled out. Follow up: Please call the office, , after surgery to arrange a 3 week follow up for wound check. Wound Care: Your wound was closed with glue, there are no sutures to remove. You may shower on post op day # 1. We ask that you do not let the water soak the wound. If it does get wet, just towel dry lightly. Please do not scrub your incision or place any type of chemical/ointment on the wound. No tub baths, pools or jacuzzis for one month. If you have any leaking or redness from your wound, or fevers, please call office Medications: We will give you a short supply of narcotics after surgery (usually one weeks worth). If you need more please call the office but do not use more than prescribed. You will need to give our office 48 hours notice if you need narcotics refilled and we do not fill narcotics on weekends or evenings. If you are on a narcotic, it is a good idea to take a stool softener such as colace or senna to avoid constipation If you take blood thinner such as aspirin, Plavix, Coumadin, Effient, Eliquis etc for conditions such as Afib, DVT, Pulmonary embolus, coronary disease, stents etc please speak with your surgeon about specific details as to when you can resume these medications. You can resume NSAIDs on post op day 1 (eg: Motrin, Naproxen, etc). Print Language: Stateless
== END 2025-06-15 16:44 | disposition home or self-care (01) ==
PROVIDERS: PCP Internal Medicine; Visit Provider Neurological Surgery
PROC: (CPT 27279; principal; 2025-06-15 12:20)
DX: M46.1 Sacroiliitis, not elsewhere classified (principal); M54.16 Radiculopathy, lumbar region; M54.9 Dorsalgia, unspecified; G43.909 Migraine, unspecified, not intractable, without status migrainosus; I10 Essential (primary) hypertension; K21.9 Gastro-esophageal reflux disease without esophagitis; E55.9 Vitamin D deficiency, unspecified; N20.0 Calculus of kidney; K76.0 Fatty (change of) liver, not elsewhere classified; Z79.899 Other long term (current) drug therapy; Z98.890 Other specified postprocedural states; Z87.891 Personal history of nicotine dependence
CPT/HCPCS: 27279; C1713; J0131; J0690; J1100; J2003; J2250; J2405; J2704; J3010; L8699

== ENCOUNTER → 2025-06-15 09:35 | Outpatient (BNV) | payer OTHER, SELFPAY | PROVIDERS: PCP Internal Medicine; Visit Provider Neurological Surgery | DX: M46.1 Sacroiliitis, not elsewhere classified (principal) | CPT/HCPCS: 27279; 99499 ==

== ENCOUNTER 2025-06-27 17:25 | Emergency (ER) | payer MEDICAID, SELFPAY ==
[2025-06-27 17:48] VITALS: BP 180/120; PULSE 74; RESP 20; TEMP 36.1; O2SAT 97; BMI 41.6
--- NOTE | 2025-06-27 17:49 | ED.GENADULT ---
HPI - General Adult General Chief complaint: Neck Pain/Injury Stated complaint: neck and shoulder pain Time Seen by Provider: 06/27/25 21:01 Related Data Home Medications ?Medication ?Instructions ?Recorded ?Confirmed acetaminophen 500 mg tablet 1,000 mg PO TID PRN low back pain 04/13/25 06/15/25 amlodipine 10 mg tablet 10 mg PO DAILY 04/13/25 06/15/25 celecoxib 50 mg capsule 50 mg PO DAILY PRN Pain 04/13/25 06/15/25 Held on 06/15/25. Instructions: Resume on 06/16/25. gabapentin 300 mg capsule 600 mg PO TID PRN pain 04/13/25 06/15/25 hydroxyzine HCl 25 mg tablet 25 mg PO BID 04/13/25 06/15/25 loratadine 10 mg tablet 10 mg PO DAILY PRN Allergy Symptoms 04/13/25 06/15/25 losartan 100 mg tablet 100 mg PO DAILY 04/13/25 06/15/25 metoprolol succinate 25 mg 25 mg PO DAILY 04/13/25 06/15/25 tablet,extended release 24 hr omeprazole 20 mg capsule,delayed 20 mg PO BID 04/13/25 06/15/25 release quetiapine 25 mg tablet 25 mg PO BEDTIME insomnia 04/13/25 06/15/25 sennosides 8.6 mg tablet (senna) 17.2 mg PO BEDTIME PRN constipation 04/13/25 06/15/25 sertraline 100 mg tablet 150 mg PO BEDTIME depressive 04/13/25 06/15/25 disorder Previous Rx's ?Medication ?Instructions ?Recorded oxycodone 5 mg tablet 5 mg PO Q6H PRN pain #30 tabs 06/15/25 Allergies Allergy/AdvReac Type Severity Reaction Status Date / Time No Known Allergies Allergy Verified 06/27/25 17:51 [facility] Past Medical History Medical History (Updated 06/28/25 @ 11:23 by Hema Bone MD) Vitamin D deficiency Urolithiasis Thyroid nodule Severe obesity Seasonal allergies Portal vein thrombosis Paraesophageal hernia 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 Migraine HTN (hypertension) Hemorrhoid Helicobacter pylori gastritis Fatty liver Hiatal hernia Dysphagia Depression Cigarette smoker Back pain GERD (gastroesophageal reflux disease) Chronic constipation Surgical History (Updated 04/14/25 @ 10:01 by Tessie Godinez RN) H/O colonoscopy Hx of cervical polypectomy Hx of lithotripsy Hx of cholecystectomy Hx of section History of esophagogastroduodenoscopy (EGD) Hx of microdiscectomy Social History Social History Are you a primary home care giver to a significant other at home: No Do you presently have visiting nurse or other home services: No Patient Tobacco Use Status: Former Tobacco user Tobacco use type: Cigarette Cigarettes Per Day: 10 Second Hand Smoke Exposure: No Advance Directives: No Advance Directives Information Provided: Yes Do you have a plan to hurt others: No Plan Physical Exam ED Vital Signs: Vital Signs - 24 hr 06/27/25 17:48 06/27/25 20:07 Temperature 97 F 98.0 F Pulse Rate 74 66 Respiratory Rate 20 16 Blood Pressure 180/120 H 161/116 H Pulse Oximetry 97 95 Oxygen Delivery Method Room Air Room Air BMI result Body Mass Index 41.6 Course Course Course Narrative: Rapid medical examination performed in triage by Mamta Stein PA-C. Patient is a 55 year old assigned female at presenting to the emergency department with right shoulder and neck pain. Detailed physical exam and review of systems are deferred to the service restorer emergency. EKG and labs ordered. Patient placed back in the waiting room pending room availability and results. Time: 11:21 Date: 06/28/25 Provider: Hema Bone MD Patient eloped from the emergency department prior to completing treatment. I did review the patient's laboratory evaluation from yesterday. Patient had elevated AST and ALT of 153 and 231 with a normal alk-phos. Total bilirubin was elevated at 1.2. I did talk to the patient over the phone using an [facility] traction power engineer. Patient states she knows that she has elevated LFTs and was told this by her PCP in the past. I did tell her that her LFTs are slightly elevated most likely secondary to her fatty liver disease and that she should follow up with her PCP for re-evaluation. Patient states that her neck pain is improved and she does not want to come back to the emergency department at this time and I told her that she should follow up with her PCP for this complaint as well. Reevaluation(s) Reevaluation #1: 9:50 PM 06/27/2025 (Dr. Stephanie Carrero, D.O.) Patient left prior to my evaluation. Time: 21:50 Medical Decision Making Lab Data 06/27/25 17:58 06/27/25 17:58 Labs: Lab Results 06/27/25 Range/Units 17:58 WBC 7.1 (4.8-10.8) X10*3/uL RBC 4.90 (4.20-5.50) X10*6/uL Hgb 15.7 (12.0-16.0) g/dl Hct 43.5 (37.0-47.0) % MCV 88.8 (80.0-98.0) fL MCH 32.0 (27.0-33.0) pg MCHC 36.1 H (31.0-35.0) g/dl RDW 12.7 (11.0-16.0) % Plt Count 366 (160-400) X10*3/uL MPV 9.5 (9.4-12.3) fL Immature Gran % (Auto) 0.3 (0.0-0.4) % Neut % (Auto) 55.6 (45-73) % Lymph % (Auto) 35.0 (20-40) % [place] % (Auto) 6.3 (2-11) % Eos % (Auto) 2.5 (0-4) % Baso % (Auto) 0.3 (0-2) % Lymph # (Auto) 2.5 (1.2-4.9) X10*3/uL [place] # (Auto) 0.5 (0.1-1.2) X10*3/uL Eos # (Auto) 0.2 (0.0-0.4) X10*3/uL Baso # (Auto) 0.0 (0.0-0.2) X10*3/uL Abs Immat Gran (auto) 0.02 (0.00-0.03) X10*3/uL Absolute Neuts (auto) 3.9 (2.0-8.3) x10*3/uL Absolute Nucleated RBC 0.000 (0.0-0.012) X10*3/uL Nucleated RBC % (auto) 0.0 (0.0-0.2) /100WBC ESR 18 (0-20) MM/HR Sodium 140 (135-145) mmol/L Potassium 3.8 (3.3-5.1) mmol/L Chloride 109 H (96-108) mmol/L Carbon Dioxide 22 (22-29) mmol/L Anion Gap 13 (12-20) BUN 15 (9-16) mg/dL Creatinine 0.91 (0.5-1.4) mg/dL Estim Creat Clear Calc 89.8 Estimated GFR > 60 Random Glucose 106 (60-115) mg/dL Calcium 9.9 (8.4-10.2) mg/dL Total Bilirubin 1.2 H (0.0-1.0) mg/dL AST 153 H (5-31) U/L ALT 231 H (0-31) U/L Alkaline Phosphatase 79 (39-117) U/L C-Reactive Protein 0.39 (< or = 0.50) mg/dL Total Protein 7.8 (6.5-8.0) g/dL Albumin 4.4 (3.5-5.0) g/dL Discharge Plan Discharge Clinical Impression: Acute neck pain, Elevated liver transaminase level, Fatty liver Patient Disposition: Left W/O Completing Treatment Prescriptions: No Action quetiapine 25 mg tablet 25 mg PO BEDTIME sennosides [senna] 8.6 mg tablet 17.2 mg PO BEDTIME PRN (Reason: constipation) sertraline 100 mg tablet 150 mg PO BEDTIME acetaminophen 500 mg tablet 1,000 mg PO TID PRN (Reason: low back pain) amlodipine 10 mg tablet 10 mg PO DAILY gabapentin 300 mg capsule 600 mg PO TID PRN (Reason: pain) omeprazole 20 mg capsule,delayed release(DR/EC) 20 mg PO BID hydroxyzine HCl 25 mg tablet 25 mg PO BID metoprolol succinate 25 mg tablet extended release 24 hr 25 mg PO DAILY losartan 100 mg tablet 100 mg PO DAILY loratadine 10 mg tablet 10 mg PO DAILY PRN (Reason: Allergy Symptoms) celecoxib 50 mg capsule 50 mg PO DAILY PRN (Reason: Pain) oxycodone 5 mg tablet 5 mg PO Q6H PRN (Reason: pain) Qty: 30 0RF Rx Instructions: Partial Fill upon patient request. Discharge Date/Time: 06/27/25 23:00
[2025-06-27 18:11] LABS: MANUAL DIFF FLAG NO
[2025-06-27 18:12] LABS: Hematocrit 43.5 % (37.0-47.0); Hemoglobin 15.7 g/dl (12.0-16.0); Imm Gran Abs Auto 0.02 X10*3/uL (0.00-0.03); Imm Gran Pct Auto 0.3 % (0.0-0.4); Lymphocytes Absolute Auto 2.5 X10*3/uL (1.2-4.9); Mean Corpuscular HGB Conc 36.1 g/dl (31.0-35.0); Mean Corpuscular Hemoglobin 32.0 pg (27.0-33.0); Mean Corpuscular Volume 88.8 fL (80.0-98.0); NRBC Abs Auto 0.000 X10*3/uL (0.0-0.012); NRBC Pct Auto 0.0 /100WBC (0.0-0.2); Platelet Count 366 X10*3/uL (160-400); Red Blood Count 4.90 X10*6/uL (4.20-5.50); White Blood Count 7.1 X10*3/uL (4.8-10.8)
[2025-06-27 18:30] LABS: Alanine Aminotransferase 231 U/L (0-31); Albumin Level 4.4 g/dL (3.5-5.0); Alkaline Phosphatase 79 U/L (39-117); Anion Gap 13 (12-20); Aspartate Amino Transferase 153 U/L (5-31); Blood Urea Nitrogen 15 mg/dL (9-16); Calcium 9.9 mg/dL (8.4-10.2); Carbon Dioxide 22 mmol/L (22-29); Chloride 109 mmol/L (96-108); Creatinine Clr Calc Pharmacy 89.8; Estimated Glomerular Filt Rate > 60; Potassium 3.8 mmol/L (3.3-5.1); Sodium 140 mmol/L (135-145); Total Protein 7.8 g/dL (6.5-8.0)
--- OUTSIDE RECORDS SUMMARY | 2025-06-27 19:29 | XMS_ITS | Clinical Summary ---
Author Organization [facility] Address [address] [place] [address] Care Team Providers Care Epic Interface Analyst Name Role Phone Jo Ann Falcon [facility] Primary Care Provider [phone]- [phone] Surgical History Surgery Date Site/Laterality Comments TUBAL LIGATION PROCEDURE: HISTORICAL TUBAL LIGATION CHOLECYSTECTOMY PROCEDURE: [place] CHOLECYSTECTOMY SECTION PROCEDURE: HISTORICAL DELIVERY CYSTOSCOPY 07/06/2018 [...] AM EDT Narrative 06/15/2019 2:40 PM EDT [facility] Diagnostic Imaging Department [address] [place], [place] [id number] Patient: ARTEMIO CALLES/Age/Sex: 1970 - 49 - F Unit#: [id number] Location/Status: SPDIMAM/REG CLI Mnemonic/Ordering Site: [facility] Ordering Physician: ELLY ROB MD [facility] Screening Digital - 06/15/19 - 1052 EXAM: [facility] Screening Digital EXAM DATE AND TIME: 06/15/2019 10:52 AM HISTORY: Screening. COMPARISON: 05/21/18 TECHNIQUE: CC and MLO views of both breasts were obtained using full field digital mammography. Bilateral digital breast tomosynthesis was performed in the MLO projection. Computer aided detection with the [employer] was employed. TISSUE DENSITY: b. There are [...] RECOMMENDATION(S): 1: Special mammographic view(s) needed LEFT 65703, 22045 3340F, 7025F Dictating Physician: MARCELA HERRERA MD Electronically Signed by: MARCELA HERRERA MD Dic Date/Time: 06/15/19 1438 Sign date/Time: 06/15/19 1440 Procedure Note Marcela Herrera - 10/09/2022 [facility] Diagnostic Imaging Department [address] [place], [place] [id number] Patient: ARTEMIO CALLES /Age/Sex: 1970 - 49 - F Unit#: [id number] Location/Status: SPDIMAM/REG CLI Mnemonic/Ordering Site: [facility] Ordering Physician: ELLY ROB MD [facility] Screening Digital - 06/15/19 - 1052 EXAM: [facility] Screening Digital EXAM DATE AND TIME: 06/15/2019 10:52 AM HISTORY: Screening. COMPARISON: 05/21/18 TECHNIQUE: CC and MLO views of both breasts were obtained using fullfield digital mammography. Bilateral digital breast tomosynthesis was performedin the MLO projection. Computer aided detection with the [employer] 7.2-Hwas employed. TISSUE DENSITY: b. There are [...] RECOMMENDATION(S): 1: Special mammographic view(s) needed LEFT 75230, 57607 3340F, 7025F Dictating Physician: MARCELA HERRERA MD Electronically Signed by: MARCELA HERRERA MD Dic Date/Time: 06/15/19 1438 Sign date/Time: 06/15/19 1440 Elly Rob MD IMG BI PROCEDURES Final R esult from Last 3 Months or Most Recently Relevant to Health Maintenance Care Teams Epic Interface Analyst Relationship Specialty Start Date End Date Jo Ann Falcon FNP PCP - General Internal Medicine 05/26/18
[2025-06-27 20:07] VITALS: BP 161/116; PULSE 66; RESP 16; TEMP 36.7; O2SAT 95
== END 2025-06-27 23:00 | disposition left against medical advice (07) ==
PROVIDERS: Physician Assistant Medical; Emergency Provider Emergency Medicine
DX: R74.01 Elevation of levels of liver transaminase levels (principal); K76.0 Fatty (change of) liver, not elsewhere classified; M54.2 Cervicalgia; I10 Essential (primary) hypertension; K21.9 Gastro-esophageal reflux disease without esophagitis; Z79.899 Other long term (current) drug therapy
CPT/HCPCS: 36415; 80053; 85025; 85652; 86140; 99283

== ENCOUNTER 2025-07-07 09:56 | Outpatient (AMB) | payer MEDICAID, SELFPAY ==
--- NOTE | 2025-07-07 10:00 | A.SPINEOV_ITS ---
Intake Visit Reasons: 1st post op Intake Note: Ms. Calles is here today for her 1st post op Chop Saw Operator Required: Yes Chop Saw Operator Services: Chop Saw Operator Present Chop Saw Operator Name: Rema Madrid LM Allergies No Known Allergies Allergy (Verified 07/07/25 10:01) Assessment & Plan Assessment & Plan (1) Lumbar radiculopathy: Code(s): M54.16 - Radiculopathy, lumbar region Category: Medical Plan Procedure: Left SIJ fusion Mary is a pleasant 55 year old female who comes in today for her 1st postoperative visit after having a left SI joint fusion completed by Dr. Marcos on 06/15/25. She reports that she has overall done very well since her surgery, in his very happy with the pain relief she has obtained. She states that her pain is about 90% better than it was preoperatively. She has been completing her basic activities of daily living around the home. She asked several questions regarding the postoperative healing course, all of which I answered to the best of my ability. No new neurological deficits. The patient ambulates well and rises from seated position without difficulty. Her incision site is closed and well healed with very mild edema but no notable erythema or drainage. I would like to follow up with Mary again in 6 weeks for his 2nd postop visit. We will obtain a set of x-rays during that visit. Harpreet Marcos MD,PhD [facility] Coding Level of Care Code Global (50881) Diagnoses Lumbar radiculopathy M54.16
--- OUTSIDE RECORDS SUMMARY | 2025-07-07 11:39 | XMS_ITS | Clinical Summary ---
Author Organization [facility] Address [address] [place] [address] Care Team Providers Care Business Continuity Manager Name Role Phone Jo Ann Falcon [facility] Primary Care Provider [phone]- [phone] Surgical History Surgery Date Site/Laterality Comments TUBAL LIGATION PROCEDURE: HISTORICAL TUBAL LIGATION CHOLECYSTECTOMY PROCEDURE: [place] CHOLECYSTECTOMY SECTION PROCEDURE: HISTORICAL DELIVERY CYSTOSCOPY 07/06/2018 [...] 09/21/2022 Social Influencers of Health Screening 09/21/2022 Depression Screening 10/20/2024 COVID-19 Vaccine (1 - 2023-2 5 season) 2025 Influenza Vaccine (#1) 2025 RSV Immunization Adult Patients (1 - 1-dose 75+ series) 2047 HIB Vaccines Aged Out No longer eligi [...] Procedure Name Priority Date/Time Associated Diagnosis Comments [facility] SCREENING DIGITAL Routine 06/15/2019 2:40 PM EDT Other specified disorders of breast from Last 3 Months or Most Recently Relevant to Health Maintenance Results * [place] SCREENING DIGITAL (06/15/2019 2:40 PM EDT) Anatomical Region Laterality Modality Mammography 06/15/2019 9:59 AM EDT Narrative 06/15/2019 2:40 PM EDT [facility] Diagnostic Imaging Department [address] [place] [id number] Patient: ARTEMIO CALLES /Age/Sex: 1970 - 49 - F Unit#: [id number] [facility] Ordering Physician: ELLY ROB MD [facility] Screening Digital - 06/15/19 - 1052 EXAM: [facility] Screening Digital EXAM DATE AND TIME: 06/15/2019 10:52 AM HISTORY: Screening. COMPARISON: 05/21/18 TECHNIQUE: CC and MLO views of both breasts were obtained using full field digital mammography. Bilateral digital breast tomosynthesis was performed in the MLO projection. Computer aided detection with the [employer] was employed. TISSUE DENSITY: b. There are [...] RECOMMENDATION(S): 1: Special mammographic view(s) needed LEFT 51108, 86356 3340F, 7025F Dictating Physician: MARCELA HERRERA MD Electronically Signed by: MARCELA HERRERA MD Dic Date/Time: 06/15/19 1438 Sign date/Time: 06/15/19 1440 Procedure Note Marcela Herrera - 10/09/2022 [facility] Diagnostic Imaging Department [address] [place] [address] Patient: ARTEMIO CALLES /Age/Sex: 1970 - 49 - F Unit#: [id number] Location/Status: SPDIMAM/REG CLI Mnemonic/Ordering Site: [facility] Ordering Physician: ELLY ROB MD [facility] Screening Digital - 06/15/19 - 1052 EXAM: [facility] Screening Digital EXAM DATE AND TIME: 06/15/2019 10:52 AM HISTORY: Screening. COMPARISON: 05/21/18 TECHNIQUE: CC and MLO views of both breasts were obtained using fullfield digital mammography. Bilateral digital breast tomosynthesis was performedin the MLO projection. Computer aided detection with the [employer] 7.2-Hwas employed. TISSUE DENSITY: b. There are [...] RECOMMENDATION(S): 1: Special mammographic view(s) needed LEFT 55579, 36719 6447F, 7082F Dictating Physician: MARCELA HERRERA MD Electronically Signed by: MARCELA HERRERA MD Dic Date/Time: 06/15/19 1438 Sign date/Time: 06/15/19 1440 Elly Rob MD IMG BI PROCEDURES Final R esult from Last 3 Months or Most Recently Relevant to Health Maintenance Care Teams Business Continuity Manager Relationship Specialty Start Date End Date Jo Ann Falcon FNP PCP - General Internal Medicine 05/26/18
== END 2025-07-07 10:18 | disposition home or self-care (01) ==
LOC: HO.HNS 09:56
PROVIDERS: PCP Internal Medicine; Visit Provider Physician Assistant
DX: M54.16 Radiculopathy, lumbar region (principal)
CPT/HCPCS: 99024

== ENCOUNTER → 2025-07-07 09:56 | Outpatient (BNVA) | payer MEDICAID, SELFPAY | PROVIDERS: PCP Internal Medicine; Visit Provider Physician Assistant | DX: Z47.89 Encounter for other orthopedic aftercare (principal); M54.16 Radiculopathy, lumbar region; Z98.890 Other specified postprocedural states | CPT/HCPCS: 99212 ==

== ENCOUNTER 2025-08-07 08:26 | Emergency (ER) | payer MEDICAID, SELFPAY ==
--- NOTE | ~2025-08-07 | XR_ITS ---
CLINICAL HISTORY: pain 3 views lumbar spine Comparison: None provided Findings: Dense contents within the sigmoid colon and rectum likely due to prior contrast administration. Surgical clips projecting over the upper abdomen. Mild grade 1 retrolisthesis at L4/L5. Otherwise normal alignment without acute fracture. Lower lumbar spine facet osteoarthritis. IMPRESSION: No acute findings. This document has been electronically signed by: Keiry Ho MD on 08/07/2025 12:42:33
--- NOTE | ~2025-08-07 | US_ITS ---
CLINICAL HISTORY: calf pain Venous duplex ultrasound left lower extremity Comparison: None provided Findings: The visualized deep veins are fully compressible with normal Doppler color flow and spectral tracings. IMPRESSION: 1. Negative for left lower extremity deep vein thrombosis. This document has been electronically signed by: Keiry Ho MD on 08/07/2025 12:40:51
[2025-08-07 08:33] VITALS: BP 138/80; PULSE 96; RESP 18; TEMP 36.2; O2SAT 98; BMI 35.4
--- NOTE | 2025-08-07 10:23 | ED_ITS ---
HPI - Back Pain/Injury General Chief Complaint: Back Pain/Injury Stated Complaint: Pain on Left foot Time Seen by Provider: 08/07/25 10:17 Source: patient and RN notes reviewed Mode of arrival: ambulatory Limitations: no limitations History of Present Illness ED Provider: Naomi Carpenter PA-C HPI Narrative: This is a 55-year-old female, with a past medical history of thyroid nodule, portal vein thrombosis, hypertension, depression, GERD, constipation, who presents emergency department for evaluation of leg pain. Patient reports that she rolled over in bed and felt pain in her left leg approximately 10 days ago. She states that since she initially felt this pain pain is worsened. Pain worsens with movement and with palpation. Pain starts in her left SI region and radiates down her entire leg. She is able to ambulate without difficulty. Denies taking any medications prior to arrival today. She states that she recently had a microdiskectomy SI joint fusion in May. She denies any urinary or bowel retention or incontinence. No saddle anesthesia. No urinary symptoms. Denies any other complaints or concerns at this time. MD elicited complaint: back pain and back injury Pertinent past history: prior back pain Onset (ago): day(s) Timing: constant Quality: aching Location: lumbar spine Radiation: left leg below the knee Exacerbating factors: movement Relieving factors: immobilization Context: turning/twisting Associated symptoms: denies other symptoms Work related injury: No Related Data Home Medications ?Medication ?Instructions ?Recorded ?Confirmed acetaminophen 500 mg tablet 1,000 mg PO TID PRN low ba ck pain 04/13/25 06/15/25 amlodipine 10 mg tablet 10 mg PO DAILY 04/13/2505/21 celecoxib 50 mg capsule 50 mg PO DAILY PRN Pain 03/2106/15/25 Held on 06/15/25. Instructions: Resume on 06/16/25. gabapentin 300 mg capsule 600 mg PO TID PRN pain 04/1306/15/25 hydroxyzine HCl 25 mg tablet 25 mg PO BID 04/13/25 loratadine 10 mg tablet 10 mg PO DAILY PRN Allergy S ymptoms 04/13/25 06/15/25 losartan 100 mg tablet 100 mg PO DAILY 04/13/25 metoprolol succinate 25 mg 25 mg PO DAILY 04/13/25 tablet,extended release 24 hr omeprazole 20 mg capsule,delayed 20 mg PO BID 04/13/25 06/15/25 release quetiapine 25 mg tablet 25 mg PO BEDTIME insomnia 06/15/25 sennosides 8.6 mg tablet (senna) 17.2 mg PO BEDTIME KS N constipation 04/13/25 06/15/25 sertraline 100 mg tablet 150 mg PO BEDTIME depressive 04/13/25 06/15/25 disorder Previous Rx's ?Medication ?Instructions ?Recorded oxycodone 5 mg tablet 5 mg PO Q6H PRN pain #30 tab s 06/15/25 acetaminophen 500 mg tablet 1,000 mg (2 x 500 mg) PO Q 6H PRN 08/07/25 (Tylenol Extra Strength) pain #30 tabs cyclobenzaprine 5 mg tablet 5 mg PO TID PRN muscle spa sm #10 08/07/25 tabs ibuprofen 600 mg tablet 600 mg PO Q6H PRN pain #30 t abs 08/07/25 Allergies Allergy/AdvReac Type Severity Reaction Status Date / Time No Known Allergies Allergy Verified 08/07/25 08:38 Review of Systems Review of Systems: Yes all other systems are reviewed and are negative Constitutional: Constitutional: Reports as per [facility] Past Medical History Medical History (Updated 08/07/25 @ 13:42 by STU Junior) Vitamin D deficiency Urolithiasis Thyroid nodule Severe obesity Seasonal allergies Portal vein thrombosis Paraesophageal hernia 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 Migraine HTN (hypertension) Hemorrhoid Helicobacter pylori gastritis Fatty liver Hiatal hernia Dysphagia Depression Cigarette smoker Back pain GERD (gastroesophageal reflux disease) Chronic constipation Surgical History (Updated 04/14/25 @ 10:01 by Tessie Godinez RN) H/O colonoscopy Hx of cervical polypectomy Hx of lithotripsy Hx of cholecystectomy Hx of section History of esophagogastroduodenoscopy (EGD) Hx of microdiscectomy Social History Social History Are you a primary foster care case manager to a significant other at home: No Do you presently have visiting nurse or other home services: No Patient Tobacco Use Status: Former Tobacco user Tobacco use type: Cigarette Cigarettes Per Day: 10 Second Hand Smoke Exposure: No Physical Exam Vital Signs: Vital Signs: Last Vital Signs Temp 97.9 F 08/07/25 13:58 Pulse 66 08/07/25 13:58 Resp 18 08/07/25 13:58 BP 112/77 08/07/25 13:58 Pulse Ox 95 08/07/25 13:58 O2 Del Method Room Air 08/07/25 13:58 BMI result Body Mass Index 35.4 Const: General: cooperative, comfortable and no acute distress Orientation/consciousness: patient oriented x3 Limitations: no limitations HEENT: Head: Yes normal to inspection, Yes normocephalic and Yes atraumatic Ears: hearing grossly normal bilaterally General nose exam: Normal external nose present Face and sinus: Yes normal facial exam Mouth: Normal oral and palatal mucosa present, oropharynx normal and moist mucous membranes Throat: Yes posterior oropharynx normal Eyes: General: appearance normal, both eyes and all related structures Eyelids: Yes eyelids normal Conjunctivae: conjunctivae normal Sclerae: sclerae normal Pupils: Equal, round and reactive pupils present EOM: EOMs intact bilaterally Neck: Neck: Yes normal visual inspection, Yes full ROM and Yes no lymphadenopathy Lymphatic: no lymphadenopathy noted Chest: Chest palpation & inspection: normal inspection of the chest Resp: Effort & Inspection: normal respiratory effort and able to speak in complete sentences Auscultation: clear to auscultation bilaterally, no crackles, no rales, no rhonchi and no wheezes Cardio: Rate: regular rate Rhythm: regular rhythm Heart sounds: S1 normal heart sound present and S2 normal heart sound present GI: Inspection: Yes normal to inspection Back/Spine/Pelvis: Other: No overlying skin changes of the back. Patient has tenderness palpation along the left SI joint region. Positive straight leg raise on the left. DTRs are 2+ bilaterally. Patient with mild tenderness palpation in the left calf. No palpable cords. No pedal edema noted. Skin: General skin exam: no rashes or lesions noted Trauma: no lacerations or abrasions Wounds: no wounds Neuro: General: patient oriented x3 and moves all extremities Cranial nerves: Yes Equal, round and reactive pupils present Extrem: General: Yes normal to inspection Right upper extremity: normal to inspection Left upper extremity: normal to inspection Right lower extremity: normal to inspection Left lower extremity: normal to inspection Medications Administered Discontinued Medications Generic Name Dose Route Start Last Admin Trade Name Freq PRN Reason Stop Dose Admin Acetaminophen 975 mg 08/07/25 10:40 08/07/25 11:16 Acetaminophen 325 Mg Tablet PO 08/07/25 10:41 975 mg ONCE ONE Administration Ketorolac Tromethamine 30 mg 08/07/25 10:40 08/07/25 11:16 Ketorolac Tromethamine 30 Mg/Ml Vial IM 08/07/25 10:41 30 mg ONCE ONE Administration Lidocaine 1 patch 08/07/25 10:40 08/07/25 11:16 Lidocaine 4 % Patch Adh..Patch TRANSDERMA 08/07/25 10:41 1 patch ONCE ONE Administration Protocol Medical Decision Making Medical Decision Making [facility] Narrative: This is a 55-year-old female who presents emergency department with concerns of left low back pain radiating down her left leg. This patient presents with back pain most consistent with lumbar radiculopathy. Differential diagnoses includes lumbago versus musculoskeletal spasm / strain versus sciatica.No back pain red flags on history or physical. Presentation not consistent with malignancy (lack of history of malignancy, lack of B symptoms), fracture (no trauma, no bony tenderness to palpation), cauda equina (no bowel or urinary incontin ence/retention, no saddle anesthesia, no distal weakness), AAA, viscus perforation , pulmonary embolism, renal colic, pyelonephritis (afebrile, no CVAT, no urinary symptoms). Patient does have tenderness palpation along the left calf, with a recent lumbar surgery, will obtain ultrasound to rule out DVT >> ultrasound negative for DVT. We attempted to get x-rays of the back however she recently had a CAT scan with oral contrast, contrast does still seen on imaging therefore unable to obtain these images. Patient is ambulatory with steady gait. She is feeling much better after receiving Toradol, Tylenol, and lidocaine patch. She will follow-up with her forensic identification specialist, advised to call tomorrow. Given strict return precautions. She has no red flag back symptoms. She is ambulatory in room without difficulty. Patient stable for discharge. Differential Diagnosis Differential Diagnoses: The differential diagnosis associated with the presentation includes See above Radiology Impression Discussion of test interpretation with radiology: I have reviewed the radiologist's reading. Radiologist Impression: CLINICAL HISTORY: calf pain Venous duplex ultrasound left lower extremity Comparison: None provided Findings: The visualized deep veins are fully compressible with normal Doppler color flow and spectral tracings. IMPRESSION: 1. Negative for left lower extremity deep vein thrombosis. This document has been electronically signed by: Keiry Ho MD on 08/07/2025 12:40:51 Dictated By: Keiry Ho MD Discharge Plan Discharge Clinical Impression: Lumbar radiculopathy Patient Disposition: Home, Self-Care Instructions: Acute Low Back Pain (ED), Lumbar Radiculopathy (ED), Lower Back Exercises (ED) Additional Instructions: You were seen in the emergency department due to leg pain. You likely are experiencing lumbar radiculopathy. This is inflammation causing you to have pain traveling down your left leg. Please take Tylenol and ibuprofen as prescribed. You may also take Flexeril, this is a muscle relaxants, please be advised that this can cause drowsiness, do not drink alcohol or drive while taking this medication. If any new or worsening symptoms occur including but not limited to severe back pain, chest pain, please seek emergent care. Follow-up with your forensic identification specialist, call to make an appointment Prescriptions: New ibuprofen 600 mg tablet 600 mg PO Q6H PRN (Reason: pain) Qty: 30 0RF acetaminophen [Tylenol Extra Strength] 500 mg tablet 1,000 mg PO Q6H PRN (Reason: pain) Qty: 30 0RF cyclobenzaprine 5 mg tablet 5 mg PO TID PRN (Reason: muscle spasm) Qty: 10 0RF No Action quetiapine 25 mg tablet 25 mg PO BEDTIME sennosides [senna] 8.6 mg tablet 17.2 mg PO BEDTIME PRN (Reason: constipation) sertraline 100 mg tablet 150 mg PO BEDTIME acetaminophen 500 mg tablet 1,000 mg PO TID PRN (Reason: low back pain) amlodipine 10 mg tablet 10 mg PO DAILY gabapentin 300 mg capsule 600 mg PO TID PRN (Reason: pain) omeprazole 20 mg capsule,delayed release(DR/EC) 20 mg PO BID hydroxyzine HCl 25 mg tablet 25 mg PO BID metoprolol succinate 25 mg tablet extended release 24 hr 25 mg PO DAILY losartan 100 mg tablet 100 mg PO DAILY loratadine 10 mg tablet 10 mg PO DAILY PRN (Reason: Allergy Symptoms) celecoxib 50 mg capsule 50 mg PO DAILY PRN (Reason: Pain) oxycodone 5 mg tablet 5 mg PO Q6H PRN (Reason: pain) Qty: 30 0RF Rx Instructions: Partial Fill upon patient request. Referrals: [facility] [Provider Group, Neurosurgery] Interventions: ED Discharge Assessment Last Done: 08/07/25 13:58 Discharge Date/Time: 08/07/25 13:59 Print Language: Urdu
[2025-08-07 10:24] VITALS: BP 104/58; PULSE 72; RESP 18; O2SAT 98
--- NOTE | 2025-08-07 10:28 | PC.NURSE ---
55 F presents to ED with lower back pain that radiates to left leg x 1.5 weeks, has difficulty bearing bearing weight on left leg and has been using a cane/walker to help her ambulate. Pt had a lower back surgery in May and pain has been bad since but has gotten worse lately. RR even and unlabored, denies CP or SOB. Pt is A+Ox4 and normally ambulates.
--- OUTSIDE RECORDS SUMMARY | 2025-08-07 10:45 | XMS_ITS | Data Portability ---
Author Organization [place] [facility], [facility] Address [address] [place] [address] Assessment Encounter Date Assessment Date Assessment LastModified by Organization Details LastModified Time 01/08/2024 01/08/2024 I am seeing the patient today under the supervision of Bethanie Mayers PA-C and Dr. Wilson who was available but who did not see the patient. The patient is Setswana-speaking and tax examining technician was utilized. HPI: 53-year-old female who last [...] reviewed, updated and is located in the patient s chart. TREATMENT: No previous back and [...] referral - eval for injections 2023 024 [facility], [address] [place] [address], [phone], 4 07:45:25 Procedures None recorded. Surgeries None recorded. Imaging None recorded. Medication Orders gabapentin 100 mg capsule 2023 024 [facility][id number], [address] [place], [address], 4 12:39:58 Patient TargetsNo targets recorded. Patient InstructionsNo instructions recorded. Reason for Referral Pain Management Referral for Low back pain eval for injections Referring Physician: Bethanie Mayers, Orthopedic Surgery, [id number] Encounter Date: 01/08/2024 Results Created Date Observation Date Name Description Value Unit Range Abnormal Flag Note LastModifiedBy Organization Detail LastModifiedTime 06/18/2006/20/2023 imagi ng/di agnos tic resul t No [...] Updated DateTime 01/08/2024 165.1 cm 33.3 kg/m2 93581.47 g Earline valdez [place] [facility] 01/08/2024 10:29:34 Social History None recorded. Functional Status None recorded. Mental Status None recorded. Family History Nothing Reported. Medical History No medical history recorded. Gynecological HistoryNo gynecological history recorded. Obstetrics History GPAL:G 0 P 0 0 0 0 Past Encounters Encounter ID Performer Location Encounter Start Date Encounter Closed Date Diagnosis/Indication Diagnosis SNOMED-CT Code Diagnosis ICD10 Code Diagnosis IMO Codes Diagnosis Note [id number] MAUREEN Campbell [address] [place] [address] 01/08/2024 10:06:55 01/28/2024 15:06:59 Low back pain 804693141 M54.50 Health Concerns Section Related Observation LastModified by Organization Detai ls LastModified Time None Recorded Concern Status LastModified by Organization Details LastModified Time None Recorded Advance Directives Directive None Recorded Payers Insurance Date Sequence Insurance Name Policy Number Policy Farmer Covered Member ID Farmer Member ID Guarantor Name 04/20/2024 1 [facility] [id number] Mary Calles [id number] Mary Calles 04/01/2024 1 [facility] [id number] Mary Calles [id number] Mary Calles OBGyn Episode No OBEpisode recorded.
--- OUTSIDE RECORDS SUMMARY | 2025-08-07 10:45 | XMS_ITS | Clinical Summary ---
Author Organization [facility] Address [address] [place] [address] Phone Care Team Providers Care Wax Room Supervisor Name Role Phone Jo Ann Falcon KENDELL Primary Care Provider [phone]- [phone] Allergies No known active allergies Encounters Date Type Department Care Team Description 07/13/2025 11:46 AM EDT - 07/13/2025 5:58 PM EDT Emergency [facility] Emergency [address] [place] [id number] Blade Louis MD Right shoulder pain, unspecified chronicity (Primary Dx); Hypertension, unspecified type Discharge Disposition: Home or Self Care from Last 3 Months Surgical History Surgery Date Site/Laterality Comments TUBAL LIGATION PROCEDURE: HISTORICAL TUBAL LIGATION CHOLECYSTECTOMY PROCEDURE: MS CHOLECYSTECTOMY SECTION PROCEDURE: HISTORICAL DELIVERY CYSTOSCOPY 07/06/2018 [...] Sexual Orientation Not on file Obstetrics History Last Filed Vital Signs Vital Sign Reading Time Taken Comments Blood Pressure 135/79 07/13/2025 5:05 PM EDT Pulse 59 07/13/2025 5:05 PM EDT Temperature 36.5 C (97.7 F) 07/13/2025 1:45 PM EDT Respiratory Rate 16 07/13/2025 5:05 PM EDT Oxygen Saturation 96% 07/13/2025 5:05 PM EDT Inhaled Oxygen Concentration - - Weight 97.1 kg (214 lb) 07/13/2025 11:10 AM EDT Height 165.1 cm (5' 5 ) 07/13/2025 11:10 AM EDT Body Mass Index 35.61 07/13/2025 11:10 AM EDT Plan of Treatment Health Maintenance Due Date Last Done Comments Colorectal Cancer Screening: Colonoscopy 1972 Hepatitis A Vaccines (1 of 2 - Risk 2-dose series) 1991 Cervical Cancer Screening: Pap Smear 1993 Breast Cancer Screening 06/15/2021 06/15/2019, 05/21 Pneumococcal Vaccine: 50+ Years (2 of 2 - PCV) 08/04/2021 08/04/2020 RSV Immunization Adult Patients (1 - Risk 50-74 years 1-dose series) 2022 HIV Screening 09/21/2022 Hepatitis C Screening 09/21/2022 Social Influencers of Health Screening 09/21/2022 Hepatitis B Vaccines (3 of 3 - 19+ 3-dose series) 10/18/2022 06/13/2022, 04/18/2022 Cholesterol Screening (Lipid Panel) 04/01/2023 04/01/2018 Depression Screening 10/20/2024 COVID-19 Vaccine ( season) 2025 08/11/2023, 06/13/2022, 09/12/2021, Additional history exists Influenza Vaccine (#1) 2025 , 07/17/2023, 09/09/2022, Additional history exists Hypertension/CHF/CAD Annual BMP Blood Test 07/13/2026 07/13/2025 DTaP,Tdap,and Td Vaccines (3 - Td or Tdap) 03/09/2031 03/09/2021, 05/01/2018 Zoster Vaccines Completed 11/05/2022, 09/09/2022 HIB Vaccines Aged Out No longer eligi [...] 20 months Aged Out No longer eligible based on patient's age to complete this topic Varicella Vaccines Aged Out No longer eligible based on patient's age to complete this topic Procedures Procedure Name Priority Date/Time Associated Diagnosis Comments ECG ANNOTATED 07/14/2025 XR SHOULDER 2+ VIEWS RIGHT STAT 07/13/2025 4:[address] ANGIO HEAD/NECK WO AND/OR W CONTRAST STAT 07/13/2025 2:12 PM EDT URINALYSIS WITH REFLEX MICROSCOPIC STAT 07/13/2025 1:02 PM EDT URINALYSIS WITH REFLEX MICROSCOPIC STAT 07/13/2025 1:02 PM EDT CBC WITH AUTO DIFFERENTIAL STAT 07/13/2025 1:01 PM EDT ACTIVATED PARTIAL THROMBOPLASTIN TIME STAT 07/13/2025 1:01 PM EDT PROTHROMBIN TIME WITH INR STAT 07/13/2025 1:01 PM EDT CBC AND DIFFERENTIAL STAT 07/13/2025 1:01 PM EDT MAGNESIUM STAT 07/13/2025 1:01 PM EDT COMPREHENSIVE METABOLIC PANEL STAT 07/13/2025 1:01 PM EDT TROPONIN I HIGH SENSITIVITY STAT 07/13/2025 1:01 PM EDT XR CHEST 1 VIEW STAT 07/13/2025 1:00 PM EDT ECG 12-LEAD Routine 07/13/2025 12:24 PM EDT ECG 12-LEAD STAT 07/13/2025 11:03 AM EDT IRAIDA SCREENING DIGITAL Routine 06/15/2019 2:40 PM EDT Other specified disorders of breast from Last 3 Months or Most Recently Relevant to Health Maintenance Results * ECG-Annotated (07/14/2025) us Provider Onbase ECG ORDERABLES Final Result * XR Shoulder 2+ Views Right (07/13/2025 4:21 PM EDT) Anatomical Region Laterality Modality Upper Extremities, Shoulder Right Radi ographic Imaging 07/13/2025 4:40 PM EDT Impressions 07/13/2025 4:41 PM EDT FINDINGS/IMPRESSION: No acute fracture. Normal alignment. Degenerative changes and osteopenia. Calcific tendinitis. -------- FINAL REPORT -------- Dictated By: Bud Vitale Dictated Date: 07/13/2025 16:40 ET Assigned Physician: Bud Vitale Reviewed and Electronically Signed By: Bud Vitale Signed Date: 07/13/2025 16:41 ET Workstation ID: [id number] Transcribed By: Self Edit Transcribed Date: 07/13/2025 16:40 ET Narrative 07/13/2025 4:41 PM EDT XR SHOULDER 2+ VIEWS RIGHT INDICATION: pain TECHNIQUE: XR SHOULDER 2+ VIEWS RIGHT COMPARISON: No priors available. Procedure Note Bud Vitale MD - 07/13/2025 XR SHOULDER 2+ VIEWS RIGHT INDICATION: pain TECHNIQUE: XR SHOULDER 2+ VIEWS RIGHT COMPARISON: No priors available. IMPRESSION: FINDINGS/IMPRESSION: No acute fracture. Normal alignment. Degenerativechanges and osteopenia. Calcific tendinitis. -------- FINAL REPORT -------- Dictated By: Bud Vitale Dictated Date: 07/13/2025 16:40 ET Assigned Physician: Bud Vitale Reviewed and Electronically Signed By: Bud Vitale Signed Date: 07/13/2025 16:41 ET Workstation ID: [id number] Transcribed By: Self Edit Transcribed Date: 07/13/2025 16:40 ET Blade Louis MD IMG XR PROCEDURES Final Result * CT Angio Head/Neck wo and/or w Contrast (07/13/2025 2:12 PM EDT) Anatomical Region Laterality Modality Head and Neck Computed Tomogra phy 07/13/2025 2:39 PM EDT Impressions 07/13/2025 2:40 PM EDT 1. No acute intracranial hemorrhage, herniation, or hydrocephalus. 2. No large vessel occlusion or high-grade stenosis in the head or neck. -------- FINAL REPORT -------- Dictated By: Bud Vitale Dictated Date: 07/13/2025 14:39 ET Assigned Physician: Bud Vitale Reviewed and Electronically Signed By: Bud Vitale Signed Date: 07/13/2025 14:40 ET Workstation ID: [id number] Transcribed By: Self Edit Transcribed Date: 07/13/2025 14:39 ET Narrative 07/13/2025 2:40 PM EDT PROCEDURE: CTA HEAD AND NECK INDICATION: Dizziness, non-specific TECHNIQUE: CTA of the head and neck with intravenous contrast. Multiplanar reformats. The examination was performed utilizing dose reduction techniques.3-D or MIP images were produced with postprocessing on an independent computer workstation. 90cc Omnipaque 370 injected. Scan was analyzed using [employer] Contact AI based computer aided triage software. Total DLP: 1580 mGy/cm COMPARISON: No priors available. FINDINGS: Noncon Brain: Cerebral hemispheres are symmetric without evidence for mass, hemorrhage or CT evidence for acute territorial infarct. CTA Neck: There is a left-sided aortic arch. Great vessels are patent with conventional anatomy. Common carotid and internal carotid arteries are patent in the neck. Cervical vertebral arteries are patent. Visualized lung apices are clear. Heterogenous, nodular thyroid. CTA Head: Intracranial portions of the internal carotid arteries are patent. Proximal middle and anterior circulation is patent. Vertebrobasilar system is patent. Proximal sliver former are patent. Major dural venous sinuses opacify normally with contrast. Large retention cyst in the left maxillary sinus.. Degenerative changes in the bones. Procedure Note Bud Vitale MD - 07/13/2025 PROCEDURE: CTA HEAD AND NECK INDICATION: Dizziness, non-specific TECHNIQUE: CTA of the head and neck with intravenous contrast. Multiplanarreformats. The examination was performed utilizing dose reductiontechniques.3-D or MIP images were produced with postprocessing on an[employer] computer workstation. 90cc Omnipaque 370 injected. Scan wasanalyzed using Viz Contact AI based computer aided triage software. Total DLP: 1580 mGy/cm COMPARISON: No priors available. FINDINGS: Noncon Brain: Cerebral hemispheres are symmetric without evidence for mass, hemorrhageor CT evidence for acute territorial infarct. CTA Neck: There is a left-sided aortic arch. Great vessels are patent withconventional anatomy. Common carotid and internal carotid arteries arepatent in the neck. Cervical vertebral arteries are patent. Visualized lung apices are clear. Heterogenous, nodular thyroid. CTA Head: Intracranial portions of the internal carotid arteries are patent. Proximal middle and anterior circulation is patent. Vertebrobasilar system is patent. Proximal sliver former are patent. Major dural venous sinuses opacify normally with contrast. Large retention cyst in the left maxillary sinus.. Degenerative changesin the bones. IMPRESSION: 1. No acute intracranial hemorrhage, herniation, or hydrocephalus. 2. No large vessel occlusion or high-grade stenosis in the head orneck. -------- FINAL REPORT -------- Dictated By: Bud Vitale Dictated Date: 07/13/2025 14:39 ET Assigned Physician: Bud Vitale Reviewed and Electronically Signed By: Bud Vitale Signed Date: 07/13/2025 14:40 ET Workstation ID: [id number] Transcribed By: Self Edit Transcribed Date: 07/13/2025 14:39 ET us Blade Louis MD [facility] CT PROCEDURES Final Result * Urinalysis with reflex microscopic (07/13/2025 1:02 PM EDT) Specific [place] Urine 1.025 1.003 - 1.030 LAB URINALYSIS - AUTOMATED METHOD 07/13/2025 1:30 PM [facility] pH, Urine 6.0 5.0 - 8.0 pH LAB URINALYSIS - AUTOMATED METHOD 07/13/2025 1:30 PM [facility] Leukocytes, Urine Negative Negative LAB URINALYSIS - AUTOMATED METHOD 07/13/2025 1:30 PM [facility] Nitrite, Urine Negative Negative LAB URINALYSIS - AUTOMATED METHOD 07/13/2025 1:30 PM [facility] Protein, Urine Trace <=Trace mg/dL LAB URINALYSIS - AUTOMATED METHOD 07/13/2025 1:30 PM [facility] Glucose, Urine Negative Negative mg/dL LAB URINALYSIS - AUTOMATED METHOD 07/13/2025 1:30 PM [facility] Ketones, Urine Negative Negative mg/dL LAB URINALYSIS - AUTOMATED METHOD 07/13/2025 1:30 PM [facility] Urobilinogen, Urine 0.2 0.2 - 1.0 mg/dL LAB URINALYSIS - AUTOMATED METHOD 07/13/2025 1:30 PM [facility] Bilirubin, Urine Negative Negative LAB URINALYSIS - AUTOMATED METHOD 07/13/2025 1:30 PM [facility] Blood, Urine Negative Negative LAB URINALYSIS - AUTOMATED METHOD 07/13/2025 1:30 PM [facility] Urine Urine specimen obtained by clean catch procedure / Unknown Non-blood Collection / Unknown 07/13/2025 1:02 PM EDT 07/13/2025 1:20 PM EDT us Blade Louis MD LAB URINE ORDERABLES Final Resul t Performing Organization Address [facility] Co de Phone Number [facility] [address] [place] [address], [place] [phone] * Troponin I High Sensitivity (07/13/2025 1:01 PM EDT) [facility] High Sensitivity Troponin I 4 <=54 ng/L LAB CHEMISTRY METHOD 07/13/2025 1:50 PM EDT [facility] Blood Venous blood specimen / Unknown Venipuncture / Unknown 07/13/2025 1:01 PM EDT 07/13/2025 1:20 PM EDT Narrative [facility] - 07/13/2025 1:50 PM EDT High levels of biotin in samples may falsely decrease hsTroponin values. Use caution when interpreting hsTroponin results in patients taking biotin who exhibit renal impairment (eGFR <60) or in patients taking more than 20 mg/day of biotin. us Blade Louis MD LAB BLOOD ORDERABLES Final Resul t Performing Organization Address [facility] de Phone Number [facility] [address] [place] [address], [place] [phone] * CBC auto differential (07/13/2025 1:01 PM EDT) [facility] WBC 6.4 4.8 - 10.8 K/mcL LAB HEMETOLOGY METHOD 07/13/2025 1:29 PM EDT [facility] RBC 4.70 3.80 - 4.80 M/mcL LAB HEMETOLOGY METHOD 07/13/2025 1:29 PM EDT [facility] Hemoglobin 15.0 11.5 - 16.0 g/dL LAB HEMETOLOGY METHOD 07/13/2025 1:29 PM EDT [facility] Hematocrit 44.1 35.0 - 47.0 % LAB [facility]OLOGY [facility]25 [facility] MCV 93.4 79.0 - 98.0 FL LAB HEMETOLOGY METHOD 07/13/2025 1:29 PM [facility] MCH 31.8 27.0 - 32.0 pcg LAB HEMETOLOGY METHOD 07/13[facility]2025 1[facility] MCHC 34.0 32.0 - 37.0 g/dL LAB HEMETOLOGY METHOD 07/13/2025 1:29 PM [facility] RDW 12.8 11.0 - 15.0 % LAB HEMETOLOGY METHOD 07/13/2025 1:29 PM [facility] Platelets 264 130 - 400 K/mcL LAB HEMETOLOGY METHOD 07/13/2025 1:29 PM [facility] MPV 10.7 7.0 - 11.0 FL LAB HEMETOLOGY METHOD 07/13/2025 1:29 PM [facility] NRBC 0.0 <1.0 % LAB HEMETOLOGY METHOD 07/13/2025 1:29 PM [facility] NRBC Absolute 0.00 <0.10 K/mcL LAB HEMETOLOGY METHOD 07/13/2025 1:29 PM [facility] Neutrophils Relative 57.2 % LAB HEMETOLOGY METHOD 07/13/2025 1:29 PM [facility] Lymphocytes Relative 31.6 % LAB HEMETOLOGY METHOD 07/13/2025 1:29 [facility] Monocytes Relative 6.7 % LAB HEMETOLOGY METHOD 07/13/2025 1:29 PM [facility] Eosinophils Relative 3.8 % LAB HEMETOLOGY METHOD 07/13/2025 1:29 PM EDT [facility] Basophils Relative 0.5 % LAB HEMETOLOGY METHOD 07/13/2025 1:29 PM EDT [facility] Immature Granulocytes Relative 0.2 % LAB HEMETOLOGY METHOD 07/13/2025 1:29 PM EDT [facility] Neutrophils Absolute 3.66 1.50 - 7.00 K/mcL LAB HEMETOLOGY METHOD 07/13/2025 1:29 PM EDT [facility] Lymphocytes Absolute 2.02 1.00 - 5.00 K/mcL LAB HEMETOLOGY METHOD 07/13/2025 1:29 PM EDT [facility] Monocytes Absolute 0.43 0.20 - 1.00 K/mcL LAB HEMETOLOGY METHOD 07/13/2025 1:29 PM EDT [facility] Eosinophils Absolute 0.24 0.00 - 0.50 K/mcL LAB HEMETOLOGY METHOD 07/13/2025 1:29 PM EDT [facility] Basophils Absolute 0.03 0.00 - 0.20 K/mcL LAB HEMETOLOGY METHOD 07/13/2025 1:29 PM EDT [facility] Immature Granulocytes Absolute 0.01 0.00 - 0.03 K/mcL LAB HEMETOLOGY METHOD 07/13/2025 1:29 PM EDT [facility] Blood Venous blood specimen / Unknown Venipuncture / Unknown 07/13/2025 1:01 PM EDT 07/13/2025 1:20 PM EDT us Blade Louis MD LAB BLOOD ORDERABLES Final Resul t [facility] [address] [place] [address], * APTT (07/13/2025 1:01 PM EDT) aPTT 27.1 24.1 - 39.3 sec LAB COAGULATION METHOD 07/13/2025 1:40 PM EDT [facility] Blood Venous blood specimen / Unknown Venipuncture / Unknown 07/13/2025 1:01 PM EDT 07/13/2025 1:20 PM EDT us Blade Louis MD LAB BLOOD ORDERABLES Final Resul t Performing Organization Address [facility] Co de Phone Number [facility] [address] [place] [address], [place] [phone] * Protime-INR (07/13/2025 1:01 PM EDT) Protime 12.1 10.6 - 13.9 sec LAB COAGULATION METHOD 07/13/2025 1:40 PM EDT [facility] INR 1.0 LAB COAGULATION METHOD 07/13/2025 1:40 PM EDT [facility] Blood Venous blood specimen / Unknown Venipuncture / Unknown 07/13/2025 1:01 PM EDT 07/13/2025 1:20 PM EDT us Blade Louis MD LAB BLOOD ORDERABLES Final Resul t Performing Organization Address [facility] de Phone Number [facility] [address] [place] [address], [place] [phone] * Magnesium (07/13/2025 1:01 PM EDT) Magnesium 2.2 1.9 - 2.6 mg/dL LAB CHEMISTRY METHOD 07/13/2025 3:34 PM EDT [facility] Blood Venous blood specimen / Unknown Venipuncture / Unknown 07/13/2025 1:01 PM EDT 07/13/2025 1:19 PM EDT us Blade Louis MD LAB BLOOD ORDERABLES Final Resul t Performing Organization Address [facility] Co de Phone Number [facility] [address] [place] [address], * (ABNORMAL) Comprehensive Metabolic Panel (CMP) (07/13/2025 1:01 PM EDT) Sodium 139 133 - 145 mmol/L LAB CHEMISTRY METHOD 07/13/2025 3:34 PM EDT [facility] Potassium 4.9 3.5 - 5.5 mmol/L LAB CHEMISTRY METHOD 07/13/2025 3:34 PM T [facility] Comment:Hemolysis present Chloride 108 96 - 110 mmol/L LAB CHEMISTRY METHOD 07/13/2025 3:34 PM [facility] CO2 23 21 - 32 mmol/L LAB CHEMISTRY METHOD 07/13/2025 3:34 PM [facility] Anion Gap 8 3 - 11 LAB CHEMISTRY METHOD 07/13/2025 3:34 PM [facility] Glucose 91 70 - 100 mg/dL LAB CHEMISTRY METHOD 07/13/2025 3:34 PM [facility] BUN 17 5 - 25 mg/dL LAB CHEMISTRY METHOD 07/13/2025 3:34 PM [facility] Creatinine 0.81 0.50 - 1.10 mg/dL LAB CHEMISTRY METHOD [facility]/13[facility]2025 3:[facility] eGFR 87 >=60 mL/min/1. 73m2 LAB CHEMISTRY METHOD 07/13/2025 3:34 PM [facility] Comment:Calculation based on the Chronic Kidney Disease Epidemiology Collaboration (CKD-EPI) equation refit without adjustment for race. BUN/Creatinine Ratio 21.0 LAB CHEMISTRY METHOD 07/13/2025 3:34 PM [facility] Calcium 9.3 8.5 - 10.5 mg/dL LAB CHEMISTRY METHOD 07/13/2025 3:34 PM [facility] AST (SGOT) 113(H) 10 - 42 unit/L LAB CHEMISTRY METHOD 07/13/2025 3:34 PM EDT [facility] ALT (SGPT) 148(H) 10 - 60 unit/L LAB CHEMISTRY METHOD 07/13/2025 3:34 PM EDT [facility] Alkaline Phosphatase 75 42 - 121 unit/L LAB CHEMISTRY METHOD 07/13/2025 3:34 PM EDT [facility] Total Protein 7.2 6.0 - 8.0 g/dL LAB CHEMISTRY METHOD 07/13/2025 3:34 PM EDT [facility] Albumin 3.6 3.2 - 5.0 g/dL LAB CHEMISTRY METHOD 07/13/2025 3:34 PM EDT [facility] Total Bilirubin 1.2 0.0 - 1.4 mg/dL LAB CHEMISTRY METHOD 07/13/2025 3:34 PM EDT [facility] Blood Venous blood specimen / Unknown Venipuncture / Unknown 07/13/2025 1:01 PM EDT 07/13/2025 1:19 PM EDT us Blade Louis MD LAB BLOOD ORDERABLES Final Resul t [facility] [address] [place] [address], [place] [phone] * XR Chest 1 View (07/13/2025 1:00 PM EDT) Anatomical Region Laterality Modality Body Radiographic Harini ging 07/13/2025 1:12 PM EDT Impressions 07/13/2025 1:12 PM EDT FINDINGS/IMPRESSION: Bronchovascular crowding at the right lung base. No consolidation or effusion. No congestive heart failure. -------- FINAL REPORT -------- Dictated By: Bud Vitale Dictated Date: 07/13/2025 13:12 ET Assigned Physician: Bud Vitale Reviewed and Electronically Signed By: Bud Vitale Signed Date: 07/13/2025 13:12 ET Workstation ID: [id number] Transcribed By: Self Edit Transcribed Date: 07/13/2025 13:12 ET Narrative 07/13/2025 1:12 PM EDT XR CHEST 1 VIEW INDICATION: chest pain TECHNIQUE: XR CHEST 1 VIEW COMPARISON: No priors available. Procedure Note Bud Vitale MD - 07/13/2025 XR CHEST 1 VIEW INDICATION: chest pain TECHNIQUE: XR CHEST 1 VIEW COMPARISON: No priors available. IMPRESSION: FINDINGS/IMPRESSION: Bronchovascular crowding at the right lung base. Noconsolidation or effusion. No congestive heart failure. -------- FINAL REPORT -------- Dictated By: Bud Vitale Dictated Date: 07/13/2025 13:12 ET Assigned Physician: Bud Vitale Reviewed and Electronically Signed By: Bud Vitale Signed Date: 07/13/2025 13:12 ET Workstation ID: [id number] Transcribed By: Self Edit Transcribed Date: 07/13/2025 13:12 ET us Blade Louis MD IMG XR PROCEDURES Final Result * ECG 12 lead (07/13/2025 12:24 PM EDT) Only the most recent of2 resultswithin the time period is included. Ventricular Rate ECG 64 BPM GEMUSE Atrial Rate 64 BPM GEMUSE P-R Interval 180 ms GEMUSE QRS Duration 84 ms GEMUSE Q-T Interval 426 ms GEMUSE QTc 439 ms GEMUSE P Wave [place] 35 degrees GEMUSE R [place] -3 degrees GEMUSE T [place] 4 degrees GEMUSE ECG Interpretation Normal sinus rhythm Voltage criteria for left ventricular hypertrophy Abnormal ECG When compared with ECG of 13-JUL-2025 11:03, (unconfirmed) No significant change was found Confirmed by NOMAN GOINS ([id number]) on 07/14/2025 11:36:25 AM GEMUSE 07/13/2025 12:2 4 PM EDT 07/14/2025 11:36 AM EDT us Richard Harley MD ECG ORDERABLES Final Result GEMUSE * [place]IDA SCREENING DIGITAL (06/15/2019 2:40 PM EDT) Anatomical Region Laterality Modality Mammography 06/15/2019 9:59 AM EDT Narrative 06/15/2019 2:40 PM EDT [facility] Diagnostic Imaging Department [address] [place] [id number] Patient: ARTEMIO CALLES./Age/Sex: 1970 - 49 - F Unit#: [id number] Location/Status: [facility] CLI Mnemonic/Ordering Site: DIGSC/SPMAM Ordering Physician: ELLY ROB MD [facility] Screening Digital - 06/15/19 - 1052 EXAM: [facility] Screening Digital EXAM DATE AND TIME: 06/15/2019 10:52 AM HISTORY: Screening. COMPARISON: 05/21/18 TECHNIQUE: CC and MLO views of both breasts were obtained using full field digital mammography. Bilateral digital breast tomosynthesis was performed in the MLO projection. Computer aided detection with the Vook 7.2-H was employed. TISSUE DENSITY: b. There [...] RECOMMENDATION(S): 1: Special mammographic view(s) needed LEFT [id number], [id number], [id number] Dictating Physician: AURE HERRERA MD Electronically Signed by: AURE HERRERA MD Dic Date/Time: 06/15/19 1438 Sign date/Time: 06/15/19 1440 Procedure Note Aure Herrera - 10/09/2022 [facility] Diagnostic Imaging Department [address] [place] [id number] Patient: ARTEMIO CALLES /Age/Sex: 1970 - 49 - F Unit#: [id number] Location/Status: [facility] Mnemonic/Ordering Site: [facility] Ordering Physician: ELLY ROB MD [facility] Screening Digital - 06/15/19 - 1052 EXAM: [facility] Screening Digital EXAM DATE AND TIME: 06/15/2019 10:52 AM HISTORY: Screening. COMPARISON: 05/21/18 TECHNIQUE: CC and MLO views of both breasts were obtained using fullfield digital mammography. Bilateral digital breast tomosynthesis was performedin the MLO projection. Computer aided detection with the Vook 7.2-Hwas employed. TISSUE DENSITY: b. There are [...] RECOMMENDATION(S): 1: Special mammographic view(s) needed LEFT [id number], [id number] 3340F, 7025F Dictating Physician: AURE HERRERA MD Electronically Signed by: AURE HERRERA MD Dic Date/Time: 06/15/19 1438 Sign date/Time: 06/15/19 1440 Elly Rob MD IMG BI PROCEDURES Final R esult from Last 3 Months or Most Recently Relevant to Health Maintenance Insurance MEDICAID - [place] Care Teams Wax Room Supervisor Relationship Specialty Start Date End Date Jo Ann Falcon FNP PCP - General Internal Medicine 05/26/18
[2025-08-07] MEDS: Lidocaine 4 % Patch ADH..PATCH 1 PATCH TRANSDERMA (11:16)
--- NOTE | 2025-08-07 11:22 | PC.NURSE ---
pt medicated per DEC for 9/10 back pain- pt taken to XR and returned, per bryce lin unable to capture sacrum coccyx as pt had oral contrast study on friday (not at this facility) that impeded imaging. STU lobo
[2025-08-07 13:55] VITALS: BP 112/77; PULSE 66; RESP 18; TEMP 36.6; O2SAT 95
[2025-08-07 13:58] VITALS: BP 112/77; PULSE 66; RESP 18; TEMP 36.6; O2SAT 95
== END 2025-08-07 13:59 | disposition home or self-care (01) ==
PROVIDERS: Emergency Provider Emergency Medicine; PCP Internal Medicine
DX: M54.16 Radiculopathy, lumbar region (principal); M79.605 Pain in left leg; I10 Essential (primary) hypertension; Z86.718 Personal history of other venous thrombosis and embolism
CPT/HCPCS: 72100; 93971; 96372; 99284; J1885

== ENCOUNTER → 2025-08-07 10:44 | Outpatient (BNV) | payer MEDICAID, SELFPAY | PROVIDERS: Emergency Provider Emergency Medicine; PCP Internal Medicine; Visit Provider Radiology Diagnostic Radiology | DX: M79.662 Pain in left lower leg (principal) | CPT/HCPCS: 93971 ==

== ENCOUNTER 2025-08-09 12:44 | Outpatient (REF) | payer MEDICAID, SELFPAY ==
--- NOTE | ~2025-08-09 | XR_ITS ---
EXAMINATION: XR SACROILIAC JOINTS CLINICAL INFORMATION: M54.16 - Radiculopathy, lumbar region COMPARISON: None available. TECHNIQUE: 3 views of the sacroiliac joints FINDINGS: Graft material/implant is seen in the region of the left SI joint. There is mild narrowing and subchondral sclerosis in the superior left SI joint. Right SI joint is unremarkable. XR/XR sacroiliac joint 1-2V IMPRESSION: Post-operative changes related to a left SI joint implant with mild degenerative changes of the superior left SI joint. Electronically signed by: Radhames Cheney MD 08/09/2025 01:41 PM EDT
== END 2025-08-09 12:45 | disposition home or self-care (01) ==
LOC: HO.HOSX 12:44
PROVIDERS: PCP Internal Medicine; Visit Provider Physician Assistant
DX: M54.16 Radiculopathy, lumbar region (principal)
CPT/HCPCS: 72200; 99212

== ENCOUNTER 2025-08-09 12:44 | Outpatient (AMB) | payer MEDICAID, SELFPAY ==
--- NOTE | 2025-08-09 12:48 | HO.SPINEOV ---
Intake Visit Reasons: [facility] 08/07/25 Intake Note: Ms. Calles is here today for an ED F/u. c/o Pain that starts on the Left SI region and radiates down her entire leg. Chemical Process Analyst Required: Yes Chemical Process Analyst Language: Office Clinician Services: Chemical Process Analyst Present Chemical Process Analyst Name: Rema Madrid LM Allergies No Known Allergies Allergy (Verified 08/09/25 12:55) Assessment & Plan Assessment & Plan (1) Lumbar radiculopathy: Code(s): M54.16 - Radiculopathy, lumbar region Category: Medical Plan Mary is a 55 year old female who underwent left-sided SI joint fusion with Dr. Marcos on 06/15/2025. To recap during her last office visit she reported about 90% improvement of her preoperative left leg pain. She comes in today for follow up evaluation of acute onset left leg pain which began about 2 weeks ago after rolling over in bed. She was evaluated in the ED for this issue 2 days ago. She comes in today as an acute add on visit for evaluation of this issue. Her ED workup was largely unremarkable, with LLE US showing no DVT. She was started on Tylenol, ibuprofen and Flexeril. She reports these medications have been modestly helpful for her pain. When describing the pain she reports it is the exact same pain that she had prior to her SI joint fusion surgery. When asked to point where her pain is most significant she points directly to the SI joint space similar to what we see patients do when examining for Noe finger test. She reports the pain does radiate to her left calf, and is causing some left 4th and 5th toe numbness when the pain flares up. She is ambulating again with the assistance of a cane. She denies any perineal numbness or bowel/bladder incontinence. On examination she maintains full 5/5 strength of the lower extremities, however elicits pain to full strength testing of her left-sided iliopsoas. She rises from a seated position by bracing herself on the chair. Her bilateral straight leg raise testing is (-). I would like to order an x-ray of the left SI joint space to rule out any gross translation or pseudoarthrosis of the left-sided SI joint space. I would like to follow this up with a CT for confirmation. I overall low clinical suspicion of herniated disc given the distribution of pain is very similar to the pain that she had prior to her SI joint fusion. This may just be a flare-up of pain from malpositioning when turning over in bed. If her pain symptoms persist despite stable x-ray and CT imaging, we may need to consider lumbar MRI. Harpreet Marcos MD,PhD [facility] Orders: Orders XR sacroiliac joint 1-2V Today M54.16 - Radiculopathy, lumbar region Coding Level of Care Code New Pt Level 4 (25436) Diagnoses Lumbar radiculopathy M54.16
--- OUTSIDE RECORDS SUMMARY | 2025-08-09 16:16 | XMS_ITS | Data Portability ---
Author Organization [place] [facility] Address [address] [place] [address] Assessment Encounter Date Assessment Date Assessment LastModified by Organization Details LastModified Time 01/08/2024 01/08/2024 I am seeing the patient today under the supervision of Bethanie Mayers PA-C and Dr. Wilson who was available but who did not see the patient. The patient is Sami-speaking and receivable executive was utilized. HPI: 53-year-old female who last [...] referral - eval for injections 2023 024 [facility], [address] [place] [address], [phone], 4 07:45:25 Procedures None recorded. Surgeries None recorded. Imaging None recorded. Medication Orders gabapentin 100 mg capsule 2023 024 [id number], [address] [place], [address], 4 12:39:58 Patient TargetsNo targets recorded. Patient InstructionsNo instructions recorded. Reason for Referral Pain Management Referral for Low back pain eval for injections Referring Physician: Bethanie Mayers, Orthopedic Surgery, [id number] Encounter Date: 01/08/2024 Results Created Date Observation [...] Updated DateTime 01/08/2024 165.1 cm 33.3 kg/m2 44704.47 g Earline valdez [place] [facility] 01/08/2024 10:29:34 Social History None recorded. Functional Status None recorded. Mental Status None recorded. Family History Nothing Reported. Medical History No medical history recorded. Gynecological HistoryNo gynecological history recorded. Obstetrics History GPAL:G 0 P 0 0 0 0 Past Encounters Encounter ID Performer Location Encounter Start Date Encounter Closed Date Diagnosis/Indication Diagnosis SNOMED-CT Code Diagnosis ICD10 Code Diagnosis IMO Codes Diagnosis Note [id number] MAUREEN Campbell [address] [place] [address] 01/08/2024 10:06:55 01/28/2024 15:06:59 Low back pain 441455871 M54.50 Health Concerns Section Related Observation LastModified by Organization Detai ls LastModified Time None Recorded Concern Status LastModified by Organization Details LastModified Time None Recorded Advance Directives Directive None Recorded Payers Insurance Date Sequence Insurance Name Policy Number Policy Farmer Covered Member ID Farmer Member ID Guarantor Name 04/20/2024 1 [facility]MEDICAID [facility] [id number] Mary Calles [id number] Mary Calles 04/01/2024 1 [facility] [id number] Mary Calles [id number] Mary Calles OBGyn Episode No OBEpisode recorded.
--- OUTSIDE RECORDS SUMMARY | 2025-08-09 16:16 | XMS_ITS | Clinical Summary ---
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 Name Role Phone Jo Ann Falcon KENDELL Primary Care Provider +1- [phone] Allergies No known active allergies Encounters Date Type Department Care Team Description 07/13/2025 11:46 AM EDT - 07/13/2025 5:58 PM EDT Emergency [facility] Emergency [address] [place] [id number] Blade Louis MD Right shoulder pain, unspecified [...] Signed Date: 07/13/2025 16:41 ET Workstation ID: [id number] Transcribed By: Self Edit Transcribed Date: 07/13/2025 [...] Signed Date: 07/13/2025 16:41 ET Workstation ID: [id number] Transcribed By: Self Edit Transcribed Date: 07/13/2025 [...] Signed Date: 07/13/2025 14:40 ET Workstation ID: [id number] Transcribed By: Self Edit Transcribed Date: 07/13/2025 14:39 ET Narrative 07/13/2025 2:40 PM EDT PROCEDURE: CTA HEAD AND NECK INDICATION: Dizziness, non-specific TECHNIQUE: CTA of the head and neck with intravenous contrast. Multiplanar reformats. The examination was performed utilizing dose reduction techniques.3-D or MIP images were produced with postprocessing on an independent computer workstation. 90cc Omnipaque 370 injected. Scan was analyzed using Enable Injections Contact AI based computer aided triage software. [...] is patent. Vertebrobasilar system is patent. Proximal towboat pilot are patent. Major dural venous sinuses opacify [...] MIP images were produced with postprocessing on [employer] computer workstation. 90cc Omnipaque 370 injected. Scan [...] is patent. Vertebrobasilar system is patent. Proximal towboat pilot are patent. Major dural venous sinuses opacify [...] Signed Date: 07/13/2025 14:40 ET Workstation ID: [id number] Transcribed By: Self Edit Transcribed Date: 07/13/2025 14:39 ET us Blade Louis MD [facility] CT PROCEDURES Final Result * Urinalysis with reflex microscopic (07/13/2025 1:02 PM EDT) Specific [place] Urine 1.025 1.003 - 1.030 LAB URINALYSIS - AUTOMATED METHOD 07/13/2025 1:30 PM [facility] pH, Urine 6.0 5.0 - 8.0 pH LAB URINALYSIS - AUTOMATED METHOD 07/13/2025 1:30 PM [facility] Leukocytes, Urine Negative Negative LAB URINALYSIS - AUTOMATED METHOD 07/13/2025 1:30 PM [facility] Nitrite, Urine Negative Negative LAB URINALYSIS - AUTOMATED METHOD 07/13/2025 1:30 PM [facility] Protein, Urine Trace <=Trace mg/dL LAB URINALYSIS - AUTOMATED METHOD 07/13/2025 1:30 PM [facility] Glucose, Urine Negative Negative mg/dL LAB URINALYSIS - AUTOMATED METHOD 07/13/2025 1:30 PM [facility] Ketones, Urine Negative Negative mg/dL LAB URINALYSIS - AUTOMATED METHOD 07/13/2025 1:30 PM [facility] Urobilinogen, Urine 0.2 0.2 - 1.0 mg/dL LAB URINALYSIS - AUTOMATED METHOD 07/13/2025 1:30 PM [facility] Bilirubin, Urine Negative Negative LAB URINALYSIS - AUTOMATED METHOD 07/13/2025 1:30 PM [facility] Blood, Urine Negative Negative LAB URINALYSIS - AUTOMATED METHOD 07/13/2025 1:30 PM [facility] Urine Urine specimen obtained by clean catch procedure / Unknown Non-blood Collection / Unknown 07/13/2025 1:02 PM EDT 07/13/2025 1:20 PM EDT us Blade Louis MD LAB URINE ORDERABLES Final Resul t Performing Organization Address [facility] Co de Phone Number [facility] [address] [place] [address], [place] [phone] * Troponin I High Sensitivity (07/13/2025 1:01 PM EDT) [facility] High Sensitivity Troponin I 4 <=54 ng/L LAB CHEMISTRY METHOD 07/13/2025 1:50 PM EDT [facility] Blood Venous blood specimen / Unknown Venipuncture / Unknown 07/13/2025 1:01 PM EDT 07/13/2025 1:20 PM EDT Narrative [facility] - 07/13/2025 1:50 PM EDT High levels of biotin in samples may falsely decrease hsTroponin values. Use caution when interpreting hsTroponin results in patients taking biotin who exhibit renal impairment (eGFR <60) or in patients taking more than 20 mg/day of biotin. us Blade Louis MD LAB BLOOD ORDERABLES Final Resul t Performing Organization Address [facility] de Phone Number [facility] [address] [place] [address], [place] [phone] * CBC auto differential (07/13/2025 1:01 PM EDT) [facility] WBC 6.4 4.8 - 10.8 K/mcL LAB HEMETOLOGY METHOD 07/13/2025 1:29 PM EDT [facility] RBC 4.70 3.80 - 4.80 M/mcL LAB HEMETOLOGY METHOD 07/13/2025 1:29 PM EDT [facility] Hemoglobin 15.0 11.5 - 16.0 g/dL LAB HEMETOLOGY METHOD 07/13/2025 1:29 PM EDT [facility] Hematocrit 44.1 35.0 - 47.0 % LAB HEMETOLOGY [facility]13[facility]2025 1[facility] MCV 93.4 79.0 - 98.0 FL LAB HEMETOLOGY METHOD 07/13/2025 1:29 PM [facility] MCH 31.8 27.0 - 32.0 pcg LAB HEMETOLOGY METHOD 07/13/2025 1:29 [facility] MCHC 34.0 32.0 - 37.0 g/dL LAB HEMETOLOGY METHOD 07/13/2025 1:29 PM [facility] RDW 12.8 11.0 - 15.0 % LAB HEMETOLOGY METHOD 07/13/2025 1:29 PM [facility] Platelets 264 130 - 400 K/mcL LAB HEMETOLOGY METHOD 07/13/2025 1:29 PM [facility] MPV 10.7 7.0 - 11.0 FL LAB HEMETOLOGY METHOD 07/13/2025 1:29 PM [facility] NRBC 0.0 <1.0 % LAB HEMETOLOGY METHOD 07/13/2025 1:29 PM [facility] NRBC Absolute 0.00 <0.10 K/mcL LAB HEMETOLOGY METHOD 07/13/2025 1:29 PM [facility] Neutrophils Relative 57.2 % LAB HEMETOLOGY METHOD 07/13/2025 1:29 PM [facility] Lymphocytes Relative 31.6 % LAB HEMETOLOGY METHOD 07/13/2025 1:29 [facility] Monocytes Relative 6.7 % LAB HEMETOLOGY METHOD 07/13/2025 1:29 PM [facility] Eosinophils Relative 3.8 % LAB HEMETOLOGY METHOD 07/13/2025 1:29 PM EDT [facility] Basophils Relative 0.5 % LAB HEMETOLOGY METHOD 07/13/2025 1:29 PM EDT [facility] Immature Granulocytes Relative 0.2 % LAB HEMETOLOGY METHOD 07/13/2025 1:29 PM EDT [facility] Neutrophils Absolute 3.66 1.50 - 7.00 K/mcL LAB HEMETOLOGY METHOD 07/13/2025 1:29 PM EDT [facility] Lymphocytes Absolute 2.02 1.00 - 5.00 K/mcL LAB HEMETOLOGY METHOD 07/13/2025 1:29 PM EDT [facility] Monocytes Absolute 0.43 0.20 - 1.00 K/mcL LAB HEMETOLOGY METHOD 07/13/2025 1:29 PM EDT [facility] Eosinophils Absolute 0.24 0.00 - 0.50 K/mcL LAB HEMETOLOGY METHOD 07/13/2025 1:29 PM EDT [facility] Basophils Absolute 0.03 0.00 - 0.20 K/mcL LAB HEMETOLOGY METHOD 07/13/2025 1:29 PM EDT [facility] Immature Granulocytes Absolute 0.01 0.00 - 0.03 K/mcL LAB HEMETOLOGY METHOD 07/13/2025 1:29 PM EDT [facility] Blood Venous blood specimen / Unknown Venipuncture / Unknown 07/13/2025 1:01 PM EDT 07/13/2025 1:20 PM EDT us Blade Louis MD LAB BLOOD ORDERABLES Final Resul t [facility] [address] [place] [address], * APTT (07/13/2025 1:01 PM EDT) aPTT 27.1 24.1 - 39.3 sec LAB COAGULATION METHOD 07/13/2025 1:40 PM EDT [facility] Blood Venous blood specimen / Unknown Venipuncture / Unknown 07/13/2025 1:01 PM EDT 07/13/2025 1:20 PM EDT us Blade Louis MD LAB BLOOD ORDERABLES Final Resul t Performing Organization Address [facility] Co de Phone Number [facility] [address] [place] [address], [place] [phone] * Protime-INR (07/13/2025 1:01 PM EDT) Protime 12.1 10.6 - 13.9 sec LAB COAGULATION METHOD 07/13/2025 1:40 PM EDT [facility] INR 1.0 LAB COAGULATION METHOD 07/13/2025 1:40 PM EDT [facility] Blood Venous blood specimen / Unknown Venipuncture / Unknown 07/13/2025 1:01 PM EDT 07/13/2025 1:20 PM EDT us Blade Louis MD LAB BLOOD ORDERABLES Final Resul t Performing Organization Address [facility] de Phone Number [facility] [address] [place] [address], [place] [phone] * Magnesium (07/13/2025 1:01 PM EDT) Magnesium 2.2 1.9 - 2.6 mg/dL LAB CHEMISTRY METHOD 07/13/2025 3:34 PM EDT [facility] Blood Venous blood specimen / Unknown Venipuncture / Unknown 07/13/2025 1:01 PM EDT 07/13/2025 1:19 PM EDT us Blade Louis MD LAB BLOOD ORDERABLES Final Resul t Performing Organization Address City/[facility] Co de Phone Number [facility] [address] [place] [address], * (ABNORMAL) Comprehensive Metabolic Panel (CMP) (07/13/2025 1:01 PM EDT) Sodium 139 133 - 145 mmol/L LAB CHEMISTRY METHOD 07/13/2025 3:34 PM EDT [facility] Potassium 4.9 3.5 - 5.5 mmol/L LAB CHEMISTRY METHOD 07/13/2025 3:34 PM T [facility] Comment:Hemolysis present Chloride 108 96 - 110 mmol/L LAB CHEMISTRY METHOD 07/13/2025 3:34 PM [facility] CO2 23 21 - 32 mmol/L LAB CHEMISTRY METHOD 07/13/2025 3:34 PM [facility] Anion Gap 8 3 - 11 LAB CHEMISTRY METHOD 07/13/2025 3:34 PM [facility] Glucose 91 70 - 100 mg/dL LAB CHEMISTRY METHOD 07/13/2025 3:34 PM [facility] BUN 17 5 - 25 mg/dL LAB CHEMISTRY METHOD 07/13/2025 3:34 PM [facility] Creatinine 0.81 0.50 - 1.10 mg/dL LAB CHEMISTRY METHOD [facility]/13[facility]2025 3[facility] eGFR 87 >=60 mL/min/1. 73m2 LAB CHEMISTRY METHOD 07/13/2025 3:34 PM [facility] Comment:Calculation based on the Chronic Kidney Disease Epidemiology Collaboration (CKD-EPI) equation refit without adjustment for race. BUN/Creatinine Ratio 21.0 LAB CHEMISTRY METHOD 07/13/2025 3:34 PM [facility] Calcium 9.3 8.5 - 10.5 mg/dL LAB CHEMISTRY METHOD 07/13/2025 3:34 PM [facility] AST (SGOT) 113(H) 10 - 42 unit/L LAB CHEMISTRY METHOD 07/13/2025 3:34 PM EDT [facility] ALT (SGPT) 148(H) 10 - 60 unit/L LAB CHEMISTRY METHOD 07/13/2025 3:34 PM EDT [facility] Alkaline Phosphatase 75 42 - 121 unit/L LAB CHEMISTRY METHOD 07/13/2025 3:34 PM EDT [facility] Total Protein 7.2 6.0 - 8.0 g/dL LAB CHEMISTRY METHOD 07/13/2025 3:34 PM EDT [facility] Albumin 3.6 3.2 - 5.0 g/dL LAB CHEMISTRY METHOD 07/13/2025 3:34 PM EDT [facility] Total Bilirubin 1.2 0.0 - 1.4 mg/dL LAB CHEMISTRY METHOD 07/13/2025 3:34 PM EDT [facility] Blood Venous blood specimen / Unknown Venipuncture / Unknown 07/13/2025 1:01 PM EDT 07/13/2025 1:19 PM EDT us Blade Louis MD LAB BLOOD ORDERABLES Final Resul t [facility] [address] [place] [address], [place] [phone] * XR Chest 1 View (07/13/2025 1:00 [...] Signed Date: 07/13/2025 13:12 ET Workstation ID: [id number] Transcribed By: Self Edit Transcribed Date: 07/13/2025 [...] Signed Date: 07/13/2025 13:12 ET Workstation ID: [id number] Transcribed By: Self Edit Transcribed Date: 07/13/2025 [...] GEMUSE QTc 439 ms GEMUSE P Wave Wood 35 degrees GEMUSE R Wood -3 degrees GEMUSE T Wood 4 degrees GEMUSE ECG Interpretation Normal sinus [...] AM EDT Narrative 06/15/2019 2:40 PM EDT [facility] Diagnostic Imaging Department [address] [place] [address] Patient: ARTEMIO CALLES./Age/Sex: 1970 - 49 - F Unit#: [id number] Location/Status: [facility] CLI Mnemonic/Ordering Site: DIGSC/SPMAM Ordering Physician: ELLY ROB MD [facility] Screening Digital - 06/15/19 - 1052 EXAM: [facility] Screening Digital EXAM DATE AND TIME: 06/15/2019 10:52 AM HISTORY: Screening. COMPARISON: 05/21/18 TECHNIQUE: CC and MLO views of both breasts were obtained using full field digital mammography. Bilateral digital breast tomosynthesis was performed in the MLO projection. Computer aided detection with the Spinlight Studio 7.2-H was employed. TISSUE DENSITY: b. There [...] RECOMMENDATION(S): 1: Special mammographic view(s) needed LEFT 56320, 70124 3340F, 7025F Dictating Physician: AURE HERRERA MD Electronically Signed by: AURE HERRERA MD Dic Date/Time: 06/15/19 1438 Sign date/Time: 06/15/19 1440 Procedure Note Aure Herrera - 10/09/2022 [facility] Diagnostic Imaging Department [address] [place] [address] Patient: ARTEMIO CALLES /Age/Sex: 1970 - 49 - F Unit#: [id number] Location/Status: [facility] Mnemonic/Ordering Site: [facility] Ordering Physician: ELLY ROB MD [facility] Screening Digital - 06/15/19 - 1052 EXAM: [facility] Screening Digital EXAM DATE AND TIME: 06/15/2019 10:52 AM HISTORY: Screening. COMPARISON: 05/21/18 TECHNIQUE: CC and MLO views of both breasts were obtained using fullfield digital mammography. Bilateral digital breast tomosynthesis was performedin the MLO projection. Computer aided detection with the Spinlight Studio 7.2-Hwas employed. TISSUE DENSITY: b. There are [...] RECOMMENDATION(S): 1: Special mammographic view(s) needed LEFT 60525, 90021 3340F, 7025F Dictating Physician: AURE HERRERA MD Electronically Signed by: AURE HERRERA MD Dic Date/Time: 06/15/19 1438 Sign date/Time: 06/15/19 1440 Elly Rob MD IMG BI PROCEDURES Final R esult from Last 3 Months or Most Recently Relevant to Health Maintenance Insurance MEDICAID - [place] Care Teams [employer] Lab[employer] Relationship Specialty Start Date End Date Jo Ann Falcon FNP PCP - General Internal Medicine 05/26/18
== END 2025-08-09 13:45 | disposition home or self-care (01) ==
LOC: HO.HNS 12:45
PROVIDERS: PCP Internal Medicine; Visit Provider Physician Assistant
DX: M54.16 Radiculopathy, lumbar region (principal)
CPT/HCPCS: 99024

== ENCOUNTER → 2025-08-09 13:24 | Outpatient (BNV) | payer MEDICAID, SELFPAY | PROVIDERS: PCP Internal Medicine; Visit Provider Radiology Diagnostic Radiology | DX: M54.16 Radiculopathy, lumbar region (principal); M53.3 Sacrococcygeal disorders, not elsewhere classified; Z96.698 Presence of other orthopedic joint implants | CPT/HCPCS: 72200 ==

== ENCOUNTER 2025-08-11 13:37 | Outpatient (REF) | payer MEDICAID, SELFPAY ==
--- NOTE | ~2025-08-11 | CT_ITS ---
EXAMINATION: CT PELVIS WITHOUT CONTRAST CLINICAL INFORMATION: Severe left leg pain status post left SI joint fusion in 05/2025. Radiculopathy, lumbar region. COMPARISON: No prior CT. Correlation made with plain films of the SI joints 08/09/2025. Correlation made with MR of the lumbar spine 03/22/2025. TECHNIQUE: Helical scanning was performed with submillimeter collimation through the pelvis. Sagittal and coronal multiplanar 2-D reconstructions were obtained. This CT examination was performed using dose optimization techniques as appropriate, variously including the following: *Automated exposure control *Adjustment of mA and/or kV according to patient size (this includes techniques or standardized protocols for targeted exams where dose is matched to indication/reason for exam; i.e. extremities or head) *Use of iterative reconstruction technique FINDINGS: SOFT TISSUES: Imaged bowel structures appear normal. A normal appendix is visualized. The uterus, and ovaries appear normal. There are no adnexal masses. The urinary bladder is decompressed but appears grossly normal. The distal ureters are normal. The vascular structures appear normal. No significant atheromatous disease. No aneurysm. No mass or adenopathy in the pelvis. No ascites or abnormal fluid collection. Pelvic girdle musculature is normal in attenuation and bulk. There is no significant hernia identified. No significant piriformis hypertrophy is evident on either side. OSSEOUS STRUCTURES: There is a fusion graft in the mid left SI joint . It appears well-positioned. No complication evident. There are mild degenerative changes in both SI joints, symmetrically. There is no evidence of erosive arthropathy. No fracture or suspicious bone lesion. There is a bone island in the left superior acetabulum. No significant enthesopathic changes are evident. There are mild degenerative changes in both hip joints. There is normal hip joint alignment. Imaging of the lower lumbar spine demonstrates significant disc degeneration and vacuum phenomenon at L4-5 and L5-S1. There are broad-based concentric disc bulges and these levels, without significant central canal narrowing. There is moderate left greater than right neural foraminal narrowing at L5-S1. There are associated mild degenerative facet changes most notable at L5-S1. CT/CT pelvis wo IV con IMPRESSION: 1. No acute bony or soft tissue abnormalities identified. 2. Fusion graft in the left SI joint. No complication evident. 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 3. Degenerative disc and facet disease L4-5 and L5-S1 as detailed. Electronically signed by: Deejay Bailey MD 08/11/2025 02:44 PM EDT
--- OUTSIDE RECORDS SUMMARY | 2025-08-11 17:34 | XMS_ITS | Clinical Summary ---
Author Organization [facility] Address [address] [place] [address] Phone Care Team Providers Care Pourer Crane Ladle Name Role Phone Jo Ann Falcon KENDELL Primary Care Provider [phone]- [phone] Allergies No known active allergies Encounters Date Type Department Care Team Description 07/13/2025 11:46 AM EDT - 07/13/2025 5:58 PM EDT Emergency [facility] Emergency [address] [place] [id number] Blade Louis MD Right shoulder pain, unspecified chronicity (Primary Dx); Hypertension, unspecified type Discharge Disposition: Home or Self Care from Last 3 Months Surgical History Surgery Date Site/Laterality Comments TUBAL LIGATION PROCEDURE: HISTORICAL TUBAL LIGATION CHOLECYSTECTOMY PROCEDURE: [place] CHOLECYSTECTOMY SECTION PROCEDURE: HISTORICAL DELIVERY CYSTOSCOPY 07/06/2018 [...] Signed Date: 07/13/2025 16:41 ET Workstation ID: [id number] Transcribed By: Self Edit Transcribed Date: 07/13/2025 [...] Signed Date: 07/13/2025 16:41 ET Workstation ID: [id number] Transcribed By: Self Edit Transcribed Date: 07/13/2025 [...] Signed Date: 07/13/2025 14:40 ET Workstation ID: [id number] Transcribed By: Self Edit Transcribed Date: 07/13/2025 14:39 ET Narrative 07/13/2025 2:40 PM EDT PROCEDURE: CTA HEAD AND NECK INDICATION: Dizziness, non-specific TECHNIQUE: CTA of the head and neck with intravenous contrast. Multiplanar reformats. The examination was performed utilizing dose reduction techniques.3-D or MIP images were produced with postprocessing on an independent computer workstation. 90cc Omnipaque 370 injected. Scan was analyzed using Quandoo Contact AI based computer aided triage software. [...] is patent. Vertebrobasilar system is patent. Proximal equipment technician are patent. Major dural venous sinuses opacify [...] MIP images were produced with postprocessing on an[employer] S[pecialists computer workstation. 90cc Omnipaque 370 injected. Scan [...] is patent. Vertebrobasilar system is patent. Proximal equipment technician are patent. Major dural venous sinuses opacify [...] Signed Date: 07/13/2025 14:40 ET Workstation ID: [id number] Transcribed By: Self Edit Transcribed Date: 07/13/2025 14:39 ET us Blade Louis MD [facility] CT PROCEDURES Final Result * Urinalysis with reflex microscopic (07/13/2025 1:02 PM EDT) Specific [place] Urine 1.025 1.003 - 1.030 LAB URINALYSIS - AUTOMATED METHOD 07/13/2025 1:30 PM [facility] pH, Urine 6.0 5.0 - 8.0 pH LAB URINALYSIS - AUTOMATED METHOD 07/13/2025 1:30 PM [facility] Leukocytes, Urine Negative Negative LAB URINALYSIS - AUTOMATED METHOD 07/13/2025 1:30 PM [facility] Nitrite, Urine Negative Negative LAB URINALYSIS - AUTOMATED METHOD 07/13/2025 1:30 PM [facility] Protein, Urine Trace <=Trace mg/dL LAB URINALYSIS - AUTOMATED METHOD 07/13/2025 1:30 PM [facility] Glucose, Urine Negative Negative mg/dL LAB URINALYSIS - AUTOMATED METHOD 07/13/2025 1:30 PM [facility] Ketones, Urine Negative Negative mg/dL LAB URINALYSIS - AUTOMATED METHOD 07/13/2025 1:30 PM [facility] Urobilinogen, Urine 0.2 0.2 - 1.0 mg/dL LAB URINALYSIS - AUTOMATED METHOD 07/13/2025 1:30 PM [facility] Bilirubin, Urine Negative Negative LAB URINALYSIS - AUTOMATED METHOD 07/13/2025 1:30 PM [facility] Blood, Urine Negative Negative LAB URINALYSIS - AUTOMATED METHOD 07/13/2025 1:30 PM [facility] Urine Urine specimen obtained by clean catch procedure / Unknown Non-blood Collection / Unknown 07/13/2025 1:02 PM EDT 07/13/2025 1:20 PM EDT us Blade Louis MD LAB URINE ORDERABLES Final Resul t Performing Organization Address [facility] Co de Phone Number [facility] [address] [place] [address], [place] [phone] * Troponin I High Sensitivity (07/13/2025 1:01 PM EDT) [facility] High Sensitivity Troponin I 4 <=54 ng/L LAB CHEMISTRY METHOD 07/13/2025 1:50 PM EDT [facility] Blood Venous blood specimen / Unknown Venipuncture / Unknown 07/13/2025 1:01 PM EDT 07/13/2025 1:20 PM EDT Narrative [facility] - 07/13/2025 1:50 PM EDT High levels of biotin in samples may falsely decrease hsTroponin values. Use caution when interpreting hsTroponin results in patients taking biotin who exhibit renal impairment (eGFR <60) or in patients taking more than 20 mg/day of biotin. us Blade Louis MD LAB BLOOD ORDERABLES Final Resul t Performing Organization Address [facility] de Phone Number [facility] [address] [place] [address], [place] [phone] * CBC auto differential (07/13/2025 1:01 PM EDT) [facility] WBC 6.4 4.8 - 10.8 K/mcL LAB HEMETOLOGY METHOD 07/13/2025 1:29 PM EDT [facility] RBC 4.70 3.80 - 4.80 M/mcL LAB HEMETOLOGY METHOD 07/13/2025 1:29 PM EDT [facility] Hemoglobin 15.0 11.5 - 16.0 g/dL LAB HEMETOLOGY METHOD 07/13/2025 1:29 PM EDT [facility] Hematocrit 44.1 35.0 - 47.0 % LAB [facility]OLOG[facility] MCV 93.4 79.0 - 98.0 FL LAB HEMETOLOGY METHOD 07/13/2025 1:29 PM [facility] MCH 31.8 27.0 - 32.0 pcg LAB HEMETOLOGY METHOD [facility]/13[facility]2025 1:[facility] MCHC 34.0 32.0 - 37.0 g/dL LAB HEMETOLOGY METHOD 07/13/2025 1:29 PM [facility] RDW 12.8 11.0 - 15.0 % LAB HEMETOLOGY METHOD 07/13/2025 1:29 PM [facility] Platelets 264 130 - 400 K/mcL LAB HEMETOLOGY METHOD 07/13/2025 1:29 PM [facility] MPV 10.7 7.0 - 11.0 FL LAB HEMETOLOGY METHOD 07/13/2025 1:29 PM [facility] NRBC 0.0 <1.0 % LAB HEMETOLOGY METHOD 07/13/2025 1:29 PM [facility] NRBC Absolute 0.00 <0.10 K/mcL LAB HEMETOLOGY METHOD 07/13/2025 1:29 PM [facility] Neutrophils Relative 57.2 % LAB HEMETOLOGY METHOD 07/13/2025 1:29 PM [facility] Lymphocytes Relative 31.6 % LAB HEMETOLOGY METHOD 07/13[facility]2025 1:[facility] Monocytes Relative 6.7 % LAB HEMETOLOGY METHOD 07/13/2025 1:29 PM [facility] Eosinophils Relative 3.8 % LAB HEMETOLOGY METHOD 07/13/2025 1:29 PM EDT [facility] Basophils Relative 0.5 % LAB HEMETOLOGY METHOD 07/13/2025 1:29 PM EDT [facility] Immature Granulocytes Relative 0.2 % LAB HEMETOLOGY METHOD 07/13/2025 1:29 PM EDT [facility] Neutrophils Absolute 3.66 1.50 - 7.00 K/mcL LAB HEMETOLOGY METHOD 07/13/2025 1:29 PM EDT [facility] Lymphocytes Absolute 2.02 1.00 - 5.00 K/mcL LAB HEMETOLOGY METHOD 07/13/2025 1:29 PM EDT [facility] Monocytes Absolute 0.43 0.20 - 1.00 K/mcL LAB HEMETOLOGY METHOD 07/13/2025 1:29 PM EDT [facility] Eosinophils Absolute 0.24 0.00 - 0.50 K/mcL LAB HEMETOLOGY METHOD 07/13/2025 1:29 PM EDT [facility] Basophils Absolute 0.03 0.00 - 0.20 K/mcL LAB HEMETOLOGY METHOD 07/13/2025 1:29 PM EDT [facility] Immature Granulocytes Absolute 0.01 0.00 - 0.03 K/mcL LAB HEMETOLOGY METHOD 07/13/2025 1:29 PM EDT [facility] Blood Venous blood specimen / Unknown Venipuncture / Unknown 07/13/2025 1:01 PM EDT 07/13/2025 1:20 PM EDT us Blade Louis MD LAB BLOOD ORDERABLES Final Resul t [facility] [address] [place] [address], * APTT (07/13/2025 1:01 PM EDT) aPTT 27.1 24.1 - 39.3 sec LAB COAGULATION METHOD 07/13/2025 1:40 PM EDT [facility] Blood Venous blood specimen / Unknown Venipuncture / Unknown 07/13/2025 1:01 PM EDT 07/13/2025 1:20 PM EDT us Blade Louis MD LAB BLOOD ORDERABLES Final Resul t Performing Organization Address City/[facility] Co de Phone Number [facility] [address] [place] [address], [place] [phone] * Protime-INR (07/13/2025 1:01 PM EDT) Protime 12.1 10.6 - 13.9 sec LAB COAGULATION METHOD 07/13/2025 1:40 PM EDT [facility] INR 1.0 LAB COAGULATION METHOD 07/13/2025 1:40 PM EDT [facility] Blood Venous blood specimen / Unknown Venipuncture / Unknown 07/13/2025 1:01 PM EDT 07/13/2025 1:20 PM EDT us Blade Louis MD LAB BLOOD ORDERABLES Final Resul t Performing Organization Address [facility] de Phone Number [facility] [address] [place] [address], [place] [phone] * Magnesium (07/13/2025 1:01 PM EDT) Magnesium 2.2 1.9 - 2.6 mg/dL LAB CHEMISTRY METHOD 07/13/2025 3:34 PM EDT [facility] Blood Venous blood specimen / Unknown Venipuncture / Unknown 07/13/2025 1:01 PM EDT 07/13/2025 1:19 PM EDT us Blade Louis MD LAB BLOOD ORDERABLES Final Resul t Performing Organization Address [facility] Co de Phone Number [facility] [address] [place] [address], * (ABNORMAL) Comprehensive Metabolic Panel (CMP) (07/13/2025 1:01 PM EDT) Sodium 139 133 - 145 mmol/L LAB CHEMISTRY METHOD 07/13/2025 3:34 PM EDT [facility] Potassium 4.9 3.5 - 5.5 mmol/L LAB CHEMISTRY METHOD 07/13/2025 3:34 PM T [facility] Comment:Hemolysis present Chloride 108 96 - 110 mmol/L LAB CHEMISTRY METHOD 07/13/2025 3:34 PM [facility] CO2 23 21 - 32 mmol/L LAB CHEMISTRY METHOD 07/13/2025 3:34 PM [facility] Anion Gap 8 3 - 11 LAB CHEMISTRY METHOD 07/13/2025 3:34 PM [facility] Glucose 91 70 - 100 mg/dL LAB CHEMISTRY METHOD 07/13/2025 3:34 PM [facility] BUN 17 5 - 25 mg/dL LAB CHEMISTRY METHOD 07/13/2025 3:34 PM [facility] Creatinine 0.81 0.50 - 1.10 mg/dL LAB CHEMISTRY METHOD [facility]/13[facility]25 [facility] eGFR 87 >=60 mL/min/1. 73m2 LAB CHEMISTRY METHOD 07/13/2025 3:34 PM [facility] Comment:Calculation based on the Chronic Kidney Disease Epidemiology Collaboration (CKD-EPI) equation refit without adjustment for race. BUN/Creatinine Ratio 21.0 LAB CHEMISTRY METHOD 07/13/2025 3:34 PM [facility] Calcium 9.3 8.5 - 10.5 mg/dL LAB CHEMISTRY METHOD 07/13/2025 3:34 PM [facility] AST (SGOT) 113(H) 10 - 42 unit/L LAB CHEMISTRY METHOD 07/13/2025 3:34 PM EDT [facility] ALT (SGPT) 148(H) 10 - 60 unit/L LAB CHEMISTRY METHOD 07/13/2025 3:34 PM EDT [facility] Alkaline Phosphatase 75 42 - 121 unit/L LAB CHEMISTRY METHOD 07/13/2025 3:34 PM EDT [facility] Total Protein 7.2 6.0 - 8.0 g/dL LAB CHEMISTRY METHOD 07/13/2025 3:34 PM EDT [facility] Albumin 3.6 3.2 - 5.0 g/dL LAB CHEMISTRY METHOD 07/13/2025 3:34 PM EDT [facility] Total Bilirubin 1.2 0.0 - 1.4 mg/dL LAB CHEMISTRY METHOD 07/13/2025 3:34 PM EDT [facility] Blood Venous blood specimen / Unknown Venipuncture / Unknown 07/13/2025 1:01 PM EDT 07/13/2025 1:19 PM EDT us Blade Louis MD LAB BLOOD ORDERABLES Final Resul t [facility] [address] [place] [address], [place] [phone] * XR Chest 1 View (07/13/2025 1:00 [...] Signed Date: 07/13/2025 13:12 ET Workstation ID: [id number] Transcribed By: Self Edit Transcribed Date: 07/13/2025 [...] Signed Date: 07/13/2025 13:12 ET Workstation ID: [id number] Transcribed By: Self Edit Transcribed Date: 07/13/2025 [...] GEMUSE QTc 439 ms GEMUSE P Wave [place] 35 degrees GEMUSE R [place] -3 degrees GEMUSE T [place] 4 degrees GEMUSE ECG Interpretation Normal sinus [...] AM EDT Narrative 06/15/2019 2:40 PM EDT [facility] Diagnostic Imaging Department [address] [place] [id number] Patient: ARTEMIO CALLES./Age/Sex: 1970 - 49 - F Unit#: [id number] Location/Status: [facility] CLI Mnemonic/Ordering Site: DIGSC/SPMAM Ordering Physician: ELLY ROB MD [facility] Screening Digital - 06/15/19 - 1052 EXAM: [facility] Screening Digital EXAM DATE AND TIME: 06/15/2019 10:52 AM HISTORY: Screening. COMPARISON: 05/21/18 TECHNIQUE: CC and MLO views of both breasts were obtained using full field digital mammography. Bilateral digital breast tomosynthesis was performed in the MLO projection. Computer aided detection with the Popdust 7.2-H was employed. TISSUE DENSITY: b. There [...] RECOMMENDATION(S): 1: Special mammographic view(s) needed LEFT 07382, 63591 3340F, 7025F Dictating Physician: AURE HERRERA MD Electronically Signed by: AURE HERRERA MD Dic Date/Time: 06/15/19 1438 Sign date/Time: 06/15/19 1440 Procedure Note Aure Herrera - 10/09/2022 [facility] Diagnostic Imaging Department [address] [place] [address] Patient: ARTEMIO CALLES /Age/Sex: 1970 - 49 - F Unit#: [id number] Location/Status: [facility] Mnemonic/Ordering Site: [facility] Ordering Physician: ELLY ROB MD [facility] Screening Digital - 06/15/19 - 1052 EXAM: [facility] Screening Digital EXAM DATE AND TIME: 06/15/2019 10:52 AM HISTORY: Screening. COMPARISON: 05/21/18 TECHNIQUE: CC and MLO views of both breasts were obtained using fullfield digital mammography. Bilateral digital breast tomosynthesis was performedin the MLO projection. Computer aided detection with the Popdust 7.2-Hwas employed. TISSUE DENSITY: b. There are [...] RECOMMENDATION(S): 1: Special mammographic view(s) needed LEFT 52057, 89304 3340F, 7025F Dictating Physician: AURE HERRERA MD Electronically Signed by: AURE HERRERA MD Dic Date/Time: 06/15/19 1438 Sign date/Time: 06/15/19 1440 Elly Rob MD IMG BI PROCEDURES Final R esult from Last 3 Months or Most Recently Relevant to Health Maintenance Insurance MEDICAID - [place] Care Teams Pourer Crane Ladle Relationship Specialty Start Date End Date Jo Ann Falcon FNP PCP - General Internal Medicine 05/26/18
--- OUTSIDE RECORDS SUMMARY | 2025-08-11 17:34 | XMS_ITS | Data Portability ---
Author Organization [place] [facility] Address [address] [place] [address] Assessment Encounter Date Assessment Date Assessment LastModified by Organization Details LastModified Time 01/08/2024 01/08/2024 I am seeing the patient today under the supervision of Bethanie Mayers PA-C and Dr. Wilson who was available but who did not see the patient. The patient is Icelandic-speaking and patient care nursing assistant was utilized. HPI: 53-year-old female who last [...] referral - eval for injections 2023 024 [facility], [address] [place] [address], [phone], 4 07:45:25 Procedures None recorded. Surgeries None recorded. Imaging None recorded. Medication Orders gabapentin 100 mg capsule 2023 024 [id number], [address] [place], [address], 4 12:39:58 Patient TargetsNo targets recorded. Patient InstructionsNo instructions recorded. Reason for Referral Pain Management Referral for Low back pain eval for injections Referring Physician: Bethanie Mayers, Orthopedic Surgery, [id number] Encounter Date: 01/08/2024 Results Created Date Observation [...] rine 10 mg tablet TOME ANTONIETA TABLETA TSUHAR VECES AL D A CUANDO SEA NECESARIO [...] Updated DateTime 01/08/2024 165.1 cm 33.3 kg/m2 51121.47 g Earline valdez [place] [facility] 01/08/2024 10:29:34 [...] ICD10 Code Diagnosis IMO Codes Diagnosis Note [id number] MAUREEN Campbell [address] [place] [address] 01/08/2024 10:06:55 01/28/2024 15:06:59 Low back pain [id number] M54.50 Health Concerns Section Related Observation LastModified by Organization Detai ls LastModified Time None Recorded Concern Status LastModified by Organization Details LastModified Time None Recorded Advance Directives Directive None Recorded Payers Insurance Date Sequence Insurance Name Policy Number Policy Farmer Covered Member ID Farmer Member ID Guarantor Name 04/20/2024 1 [facility] [id number] Mary Calles [id number] Mary Calles 04/01/2024 1 [facility] [id number] Mary Calles [id number] Mary Calles OBGyn Episode No OBEpisode recorded.
== END 2025-08-11 13:38 | disposition home or self-care (01) ==
LOC: HO.CT 13:37
PROVIDERS: PCP Internal Medicine; Visit Provider Physician Assistant
DX: M54.16 Radiculopathy, lumbar region (principal)
CPT/HCPCS: 72192

== ENCOUNTER → 2025-08-11 13:39 | Outpatient (BNV) | payer MEDICAID, SELFPAY | PROVIDERS: PCP Internal Medicine; Visit Provider Radiology Diagnostic Radiology | DX: M54.16 Radiculopathy, lumbar region (principal) | CPT/HCPCS: 72192 ==

== ENCOUNTER → 2025-08-18 07:52 | Outpatient (BNV) | payer MEDICAID, SELFPAY | PROVIDERS: PCP Internal Medicine; Visit Provider Radiology Diagnostic Radiology | DX: M54.16 Radiculopathy, lumbar region (principal); M96.1 Postlaminectomy syndrome, not elsewhere classified; M99.63 Osseous and subluxation stenosis of intervertebral foramina of lumbar region | CPT/HCPCS: 72148 ==

== ENCOUNTER 2025-08-18 07:53 | Outpatient (REF) | payer MEDICAID, SELFPAY ==
--- OUTSIDE RECORDS SUMMARY | 2025-08-13 23:59 | XMS_ITS | Continuity of Care Document ---
Author Organization [facility] Address [address] [place] [address]- Care Team Providers Care Traverse Rod Assembler Name Role Phone Liane RIVERA, Elly Primary Care Physician Encounter [facility] [place] Date(s): 07/14/25 - 08/13/25 [facility]/[address] [address]- Encounter Type: Triage Allergies, Adverse Reactions, Alerts No Known Allergies Immunizations Given and Recorded Vaccine Date Status Refusal Reason influenza virus vaccine, inactivated 07/28/24 Give n influenza virus vaccine, inactivated 07/17/23 Augustus rded influenza virus vaccine, inactivated 09/09/22 Give n influenza virus vaccine, inactivated 10/03/21 Augustus rded influenza virus vaccine, inactivated 1 08/04/20 Re corded SARS-CoV-2(COVID-19)mRNA-LNP vac([id number]) 08/11/23 Given zoster vaccine, inactivated 11/05/22 Given zoster vaccine, inactivated 09/09/22 Given SARS-CoV-2 (COVID-19) mRNA BNT-162b2 vac 06/13/22 Given SARS-CoV-2 (COVID-19) mRNA BNT-162b2 vac 09/12/21 Recorded SARS-CoV-2 (COVID-19) mRNA BNT-162b2 vac 02/13/21 Recorded SARS-CoV-2 (COVID-19) mRNA BNT-162b2 vac 01/22/21 Recorded hepatitis B adult vaccine 2 06/13/22 Given hepatitis B adult vaccine 04/18/22 Given tetanus/diphtheria/pertussis, acel(Tdap) 03/09/21 Given tetanus/diphtheria/pertussis, acel(Tdap) 05/01/18 Recorded pneumococcal 23-valent vaccine 3 08/04/20 Recorded Influenza Virus Vaccine (oldterm) 06/22/19 Recorde d 1Result Comment: administered in office 2Result Comment: HEPLISAV-B 2ND/FINAL DOSE 3Result Comment: ADMINISTERED IN OFFICE Medications acetaminophen 500 mg oral tablet 2 tablet = 1,000 mg, By Mouth, 3 times a day, PRN as needed for back pain, can combine with celebrex, # 100 tablet, 0 Refills, Maintenance, 03/25/25 1:35:00 PM EDT, [facility]/pharmacy #[id number], 165, cm, 03/25/25 12:58:00 EDT, Height, 96.6, kg, 03/25/25 12:58:00 EDT, Dry Weight Start Date: 03/25/25 Status: Ordered Medication Dispense Status: Completed Quantity: 100.0 Unit: tablet Total Allowed Fills: 1 Fills Dispensed: 0 amLODIPine 10 mg oral tablet 10 mg, 1, tablet, By Mouth, Daily, # 90 tablet, Refills 1, Tot. Refills 1, Maintenance, 02/11/25 12:18:00 PM EDT, Route to Pharmacy Electronically, [facility]/pharmacy #[id number], Partial fill upon patient request if the prescription is for a schedule II opioid drug., 165, cm, 02/09/25 13:03:00 EDT, Height, 95.45, kg, 01/21/25 15:53:00 EDT, Dry Weight Start Date: 02/11/25 Status: Ordered Medication Dispense Status: Completed Quantity: 90.0 Unit: tablet Total Allowed Fills: 2 Fills Dispensed: 0 diclofenac sodium 75 mg oral delayed release tablet 1 tablet = 75 mg, By Mouth, 2 times a day, scheduled bid with food x 7 days, then PRN, # 60 tablet,0 Refills, Maintenance, 07/18/25 8:32:00 AM EDT, EC Tablet, [facility]/pharmacy #[id number], Partial fill upon patient request if the prescription is for a schedule II opioid drug., 165, cm, 07/18/25 8:11:00 EDT, Height, 95, kg, 03/29/25 16:55:00 EDT, Dry Weight Start Date: 07/18/25 Status: Ordered Medication Dispense Status: Completed Quantity: 60.0 Unit: tablet Total Allowed Fills: 1 Fills Dispensed: 0 gabapentin 600 mg oral tablet 1 tablet = 600 mg, By Mouth, 3 times a day, # 270 tablet, 3 Refills, Maintenance, 07/28/24 8:48:00 AM EDT, [facility]/pharmacy #[id number], Partial fill upon patient request if the prescription is for a schedule II opioid drug., 165, cm, 07/28/24 7:52:00 EDT, Height, 90.8, kg, 07/01/24 13:03:00 EDT, Dry Weight Start Date: 07/28/24 Stop Date: 07/23/25 Status: Ordered Medication Dispense Status: Completed Quantity: 270.0 Unit: tablet Total Allowed Fills: 4 Fills Dispensed: 0 Indications: Sciatica, unspecified side; Golytely - oral powder for reconstitution 240 mL, By Mouth, Every 10 minutes, # 1 each, 0 Refills, Maintenance, 07/19/25 8:43:00 AM EDT, REC Powder, [facility]/pharmacy #[id number], Partial fill upon patient request if the prescription is for a schedule II opioid drug., 240 mL By Mouth Every 10 minutes, 165, cm, 07/19/25 8:19:00 EDT, Height, 95, kg, 03/29/25 16:55:00 EDT, Dry Weight Start Date: 07/19/25 Status: Ordered Medication Dispense Status: Completed Quantity: 1.0 Unit: each Total Allowed Fills: 1 Fills Dispensed: 0 hydrOXYzine hydrochloride 50 mg oral tablet TOME 1 TABLETA POR V A ORAL DOS VECES AL D A Start Date: 07/18/25 Status: Ordered Medication Dispense Status: Completed Total Allowed Fills: 1 Fills Dispensed: 0 lidocaine 1.8% topical film 1 patch, Topically, Daily, leave on up to 12 hours, # 30 each, 0 Refills, Maintenance, 07/19/25 8:19:00 AM EDT, Film, Partial fill upon patient request if the prescription is for a schedule II opioid drug. Start Date: 07/19/25 Status: Ordered Medication Dispense Status: Completed Quantity: 30.0 Unit: each Total Allowed Fills: 1 Fills Dispensed: 0 loratadine 10 mg oral tablet See Instructions, TOME 1 TABLETA POR VIA ORAL TODOS [place], # 90 tablet, Refills 1, Maintenance, 07/01/25 1:10:00 PM EDT, Instructions Replace Required Details, [id number], 165, cm, 06/27/25 15:28:00 EDT, Height, 95, kg, 03/29/25 16:55:00 EDT, Dry Weight Start Date: 07/01/25 Status: Ordered Medication Dispense Status: Completed Quantity: 90.0 Unit: tablet Total Allowed Fills: 1 Fills Dispensed: 0 omeprazole 20 mg oral delayed release tablet 1 tablet = 20 mg, By Mouth, 2 times a day, # 30 tablet, 0 Refills, Maintenance, 07/19/25 8:18:00 AM EDT, EC Tablet, Partial fill upon patient request if the prescription is for a schedule II opioid drug. Start Date: 07/19/25 Status: Ordered Medication Dispense Status: Completed Quantity: 30.0 Unit: tablet Total Allowed Fills: 1 Fills Dispensed: 0 QUEtiapine 50 mg oral tablet TOME ANTONIETA TABLETA POR V A ORAL AL ACOSTARSE FOR RACING THOUGHTS/INSOMNIA Start Date: 07/18/25 Status: Ordered Medication Dispense Status: Completed Total Allowed Fills: 1 Fills Dispensed: 0 sertraline 100 mg oral tablet TAKE 1& 1/2 TABLET BY MOUTH EVERY MORNING FOR ANXIETY AND DEPRESSION Start Date: 07/18/25 Status: Ordered Medication Dispense Status: Completed Total Allowed Fills: 1 Fills Dispensed: 0 Vitamin D3 1000 intl units oral tablet 1 tablet = 25 mcg, By Mouth, Daily, # 90 tablet, 3 Refills, Maintenance, 07/28/24 8:47:00 AM EDT, Tablet, [facility]/pharmacy #[id number], Partial fill upon patient request if the prescription is for a schedule IIopioid drug., 165, cm, 07/28/24 7:52:00 EDT, Height, 90.8, kg, 07/01/24 13:03:00 EDT, Dry Weight Start Date: 07/28/24 Stop Date: 07/23/25 Status: Ordered Medication Dispense Status: Completed Quantity: 90.0 Unit: tablet Total Allowed Fills: 4 Fills Dispensed: 0 zolpidem 5 mg oral tablet TOME 1 TABLETA POR V A ORAL TODOS LOS D AL ACOSTARSE Start Date: 07/18/25 Status: Ordered Medication Dispense Status: Completed Total Allowed Fills: 1 Fills Dispensed: 0 Problem List Condition Confirmation Course Effective Dates Status H ealth Status Informant Abnormal uterine bleeding (AUB) Confirmed Active Chronic constipation Confirmed Active Chronic lower back pain 1, 2 Confirmed Active Cigarette smoker Confirmed Active Depression 3, 4, 5 Confirmed Active Dysphagia 6, 7 Confirmed Active Chronic GERD 8, 9, 10 Confirmed Active Helicobacter pylori gastritis 11, 12 Confirmed Active Esophageal hiatal hernia 13 Confirmed Active History of hemorrhoids 14 Confirmed Active Hypertension Confirmed Active 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 Confirmed 02/2022 Active Low back pain 15, 16, 17, 18 Confirmed Active Migraine 19 Confirmed Active Paraesophageal hernia 20 Confirmed Active Portal vein thrombosis 21, 22 Confirmed 02/05/22 Active Seasonal allergies Confirmed Active Severe obesity (BMI 35.0-39.9) with comorbidity Confirmed Active Fatty liver Confirmed Active Thyroid nodule 23, 24 Confirmed Active Urolithiasis Confirmed Active Vitamin D deficiency Confirmed Active 1s/p microdiscectomy March 2024 by Neurosurgery 2X-Rays 06-20- There is moderate disc space narrowing at L4-L5. No other degenerative disc disease. 3-declines intervention 4-follows at [facility] 5-follows 6s/p dilation in October 2024 7EGD Sep 2023: stricture in the gastroesphageal junction s/p dilation 8-medium size hiatal hernia. Per GI after EGD should be on PPI indefinitely 9seen also in EGD January 2022 + H pylori 10seen in Barium swallow April 2021 11s/p triple therapy 12-seen in EGD January 2022. Did not complete tx for H pylori 13EGD January 2023 14internal and external. Colonoscopy 2024 15s/p SI joint fusion in May 2025 16s/p microdiscectomy March 2024 by neurosurgery [id number]: Degenerative changes of the lumbar discs. At L5-S1, there is a small left subarticular disc protrusion abutting and displacing posteriorly the left S1 nerve roots. No impingement. 18X-ray Juneegenerative change limited to L4-L5.. 19-on propranolol as prohylaxis 20-Grade III. MRI March 2024 21-Right sided portal vein thrombus with occlusion of posterior branches 22Hospitalized at [facility] 23Sept2022: Stable size to slightly diminished right upper pole nodule, TI-RADS 3, 1.5 cm. Follow-up in 2 years is suggested. Decreased size of partially cystic left thyroid nodule, TI-RADS 3. 24US June 2022: 1. Right thyroid lobe nodule measuring up to 1.7 cm is TI-RADS Category 3. Follow-up with ultrasound in one year is recommended. 2. Left thyroid lobe nodule measuring up to 1.2 cm is TI-RADS Category 2 (no follow up for this nodule needed) Social History Social History Type Response Smoking Status 5-9 cigarettes (betw een 1/4 to 1/2 pack)/day in last 30 days; Use: 3-5 cigs per day; Type: Cigarettes; Other: 11 pack history. Does not qualify for LDCT. reports that patches and gum did not help; anxiety makes me smoke ,; Started at age: 37; entered on: 11/16/24 Sexual Orientation Self described orien tation: ; Straight or heterosexual Sex Sex Representation Female (finding) Patient Care team information Care Team Personnel Name: Slim CHUNG, Toni Position: [facility] RN Member Role: Primary Care Nurse Name: Chelsi Raymond RN Position: [facility] RN Member Role: Primary Care Nurse Name: Elly Rob MD Position: [facility] Physician - Primary Care Member Role: PCP Address: [address] [place] [address] Telecom: Care Team Related Persons Name: CASTRO MORGAN Insurance Providers Guarantor name: ARTEMIO REYES [facility] Ping Communication Plan Information #: 1 Payer: [employer] Payer Identifier: FELIX Member Number: [id number] Group Number: [id number] Subscriber Identifier: FELIX Relationship to Subscriber: self Coverage Type: MEDICAID Coverage Verification Date: NA Telecom: FELIX Address: NA
--- OUTSIDE RECORDS SUMMARY | 2025-08-17 23:59 | XMS_ITS | Continuity of Care Document ---
Author Organization [facility] Address [address] [place] [address]- Care Team Providers Care Weigher Packing Name Role Phone Liane RIVERA, Elly Primary Care Physician Encounter [facility] [place] Date(s): 07/18/25 - 08/17/25 [facility]/[address] [address]- Attending Physician: Admtr, Ar8 Admitting Physician: Admtr, Ar8 Referring Physician: Admtr, Ar8 Encounter Type: Triage Allergies, Adverse Reactions, Alerts No Known Allergies Immunizations Given and Recorded Vaccine Date Status Refusal Reason influenza virus vaccine, inactivated 07/28/24 Give n influenza virus vaccine, inactivated 07/17/23 Augustus rded influenza virus vaccine, inactivated 09/09/22 Give n influenza virus vaccine, inactivated 10/03/21 Augustus rded influenza virus vaccine, inactivated 1 08/04/20 Re corded SARS-CoV-2(COVID-19)mRNA-LNP vac([id number]) 08/11/23 Given zoster vaccine, inactivated 11/05/22 Given zoster vaccine, inactivated 09/09/22 Given SARS-CoV-2 (COVID-19) mRNA BNT-162b2 vac 06/13/22 Given SARS-CoV-2 (COVID-19) mRNA BNT-162b2 vac 09/12/21 Recorded SARS-CoV-2 (COVID-19) mRNA BNT-162b2 vac 02/13/21 Recorded SARS-CoV-2 (COVID-19) mRNA BNT-162b2 vac 01/22/21 Recorded hepatitis B adult vaccine 2 8/25/22 Given hepatitis B adult vaccine 04/18/22 Given [...] 0 Refills, Maintenance, 03/25/25 1:35:00 PM EDT, [facility]/pharmacy #[id number], 165, cm, 03/25/25 12:58:00 EDT, [...] 12:18:00 PM EDT, Route to Pharmacy Electronically, [facility]/pharmacy #[id number], Partial fill upon patient request [...] Maintenance, 07/18/25 8:32:00 AM EDT, EC Tablet, [facility]/pharmacy #[id number], Partial fill upon patient request [...] 3 Refills, Maintenance, 07/28/24 8:48:00 AM EDT, [facility]/pharmacy #[id number], Partial fill upon patient request [...] Maintenance, 07/19/25 8:43:00 AM EDT, REC Powder, [facility]/pharmacy #[id number], Partial fill upon patient request [...] Replace Required Details, Route to Pharmacy Electronically, [id number], 165, cm, 06/27/25 15:28:00 EDT, Height, 95, [...] Refills, Maintenance, 07/28/24 8:47:00 AM EDT, Tablet, [facility]/pharmacy #[id number], Partial fill upon patient request if the [...] 1s/p microdiscectomy March 2024 by Neurosurgery 2X-Rays 06-20-23 There is moderate disc space narrowing at L4-L5. No other degenerative disc disease. 3-declines intervention 4-follows at [facility] 5-follows 6s/p dilation in October 2024 7EGD [...] with occlusion of posterior branches 22Hospitalized at [facility] 23Sept2022: Stable size to slightly diminished right [...] or heterosexual Sex Sex Representation Female (finding) Imaging * Event Display: CT Scan Pelvis, Non- BH Authored Date: * Event Display: X-Ray Hip/Groin, Non- BH Authored Date: * Event Display: IR Special Procedures, Non-BH Authored Date: * Event Display: IR Special Procedures, Non-BH Authored Date: * Event Display: MRI Spine, Non- BH Authored Date: * Event Display: Ultrasound Breast, Non-BH Authored Date: MG Breast Views * Event Display: MM Mammogram Authored Date: * Event Display: MM Mammogram Authored Date: * Event Display: MM Mammogram, Non- BH Authored Date: * Event Display: MM Mammogram, Non- BH Authored Date: * Event Display: MM Mammogram Authored Date: Patient Care team information Care Team Personnel Name: Slim CHUNG, Toni Position: [facility] RN Member Role: Primary Care Nurse Name: Chelsi Raymond RN Position: [facility] RN Member Role: Primary Care Nurse Name: Elly Rob MD Position: [facility] Physician - Primary Care Member Role: PCP Address: [address] [place] [address] Telecom: Care Team Related Persons Name: CASTRO MORGAN Insurance Providers Guarantor name: ARTEMIO ALEGRIANANDEZ [facility] [employer] [facility] Information #: 1 Payer: [facility] Payer Identifier: FELIX Member Number: [id number] Group Number: [id number] Subscriber Identifier: FELIX Relationship to Subscriber: self Coverage Type: Medicaid (Managed Care) Coverage Verification Date: Telecom: NA Address:
--- NOTE | ~2025-08-18 | MR_ITS ---
EXAMINATION: MR LUMBAR SPINE WITHOUT CONTRAST CLINICAL INFORMATION: M 54.16. Radiculopathy, lumbar region. COMPARISON: March 22, 2025 TECHNIQUE: MRI of the lumbar spine was obtained using routine sequences without contrast. FINDINGS: Last rib-bearing vertebra labeled T12. Hyperintense STIR bone marrow signal involving the vertebral body at inferior endplate of L5 and superior endplate of S1 and to a lesser extent the left-sided posterior elements/facet joint. Status post left hemilaminectomy, L5-S1. There is an irregularly-shaped, 8 x 2 x 3 cm fluid signal characteristic abnormality extending from the deep fat planes into the lateral aspect of the left facet joint at L5-S1. There is no CSF leak/pseudomeningocele. No gross epidural fluid collections in the central spinal canal. There is a left subarticular and foraminal broad-based herniated disc at L5-S1 resulting in central spinal canal and left neuroforamina and stenosis compressing the left S1 and likely L5 nerve roots on the lateral recess and neural foramina. Conus medullaris and cephalad intervertebral disc T12-L1 with normal signal. There is diffuse edema pattern in the deep fat planes of the lower thoracolumbar spine extending from T11 to S1. T12-L1: No central spinal canal or neuroforamina stenosis. L1-2: Broad-based disc bulging. Facet joint hypertrophy. No central spinal canal or neuroforamina stenosis. L2-3: Broad-based disc bulging. Facet joint and ligamentum flavum hypertrophy. No compression upon neural elements. L3-4: Broad-based disc bulging. Facet joint hypertrophy. Reduced AP diameter of the thecal sac and neuroforamina. L4-5: Broad-based disc bulging. Facet joint and ligamentum flavum hypertrophy resulting in central spinal canal and bilateral neuroforamina stenosis likely encroaching the neural elements. L5-S1: Has been described on the initial paragraph. Cystic lesions in the kidneys. No prevertebral compartment hematoma or masses. MR/MR lumbar spine wo con IMPRESSION: Left hemilaminectomy L5-S1 and 8 x 2 x 3 cm irregular shaped fluid collection extending from the deep fat planes to the lateral left facet joint. Left subarticular and foraminal herniated disc at L5-S1 compressing left S1 and likely left L5 nerve roots. Acute to subacute inflammatory changes at L5-S1. Central spinal canal and bilateral neuroforamina stenosis on a degenerative basis at L4-5 encroaching the neural elements.. Electronically signed by: Froylan Acharya MD 08/18/2025 09:11 AM EDT
--- OUTSIDE RECORDS SUMMARY | 2025-08-18 07:59 | XMS_ITS | Clinical Summary ---
Author Organization [facility] Address [address] [place] [address] Phone Care Team Providers Care Devulcanizer Loader Name Role Phone Jo Ann Falcon KENDELL Primary Care Provider [phone]- [phone] Allergies No known active allergies Encounters Date Type Department Care Team Description 07/13/2025 11:46 AM EDT - 07/13/2025 5:58 PM EDT Emergency [facility] Emergency [address] [place] [id number] Blade Louis MD Right shoulder pain, unspecified chronicity (Primary Dx); Hypertension, unspecified type Discharge Disposition: Home or Self Care from Last 3 Months Surgical History Surgery Date Site/Laterality Comments TUBAL LIGATION PROCEDURE: HISTORICAL TUBAL LIGATION CHOLECYSTECTOMY PROCEDURE: [place] CHOLECYSTECTOMY SECTION PROCEDURE: HISTORICAL DELIVERY CYSTOSCOPY 07/06/2018 [...] Signed Date: 07/13/2025 16:41 ET Workstation ID: [id number] Transcribed By: Self Edit Transcribed Date: 07/13/2025 [...] Signed Date: 07/13/2025 16:41 ET Workstation ID: [id number] Transcribed By: Self Edit Transcribed Date: 07/13/2025 [...] Signed Date: 07/13/2025 14:40 ET Workstation ID: [id number] Transcribed By: Self Edit Transcribed Date: 07/13/2025 14:39 ET Narrative 07/13/2025 2:40 PM EDT PROCEDURE: CTA HEAD AND NECK INDICATION: Dizziness, non-specific TECHNIQUE: CTA of the head and neck with intravenous contrast. Multiplanar reformats. The examination was performed utilizing dose reduction techniques.3-D or MIP images were produced with postprocessing on an independent computer workstation. 90cc Omnipaque 370 injected. Scan was analyzed using Entrisphere Contact AI based computer aided triage software. [...] is patent. Vertebrobasilar system is patent. Proximal scrap drop engineer are patent. Major dural venous sinuses opacify [...] MIP images were produced with postprocessing on anindepSezWho computer workstation. 90cc Omnipaque 370 injected. Scan [...] is patent. Vertebrobasilar system is patent. Proximal scrap drop engineer are patent. Major dural venous sinuses opacify [...] Signed Date: 07/13/2025 14:40 ET Workstation ID: [id number] Transcribed By: Self Edit Transcribed Date: 07/13/2025 14:39 ET us Blade Louis MD [facility] CT PROCEDURES Final Result * Urinalysis with reflex microscopic (07/13/2025 1:02 PM EDT) Specific [place] Urine 1.025 1.003 - 1.030 LAB URINALYSIS - AUTOMATED METHOD 07/13/2025 1:30 PM [facility] pH, Urine 6.0 5.0 - 8.0 pH LAB URINALYSIS - AUTOMATED METHOD 07/13/2025 1:30 PM [facility] Leukocytes, Urine Negative Negative LAB URINALYSIS - AUTOMATED METHOD 07/13/2025 1:30 PM [facility] Nitrite, Urine Negative Negative LAB URINALYSIS - AUTOMATED METHOD 07/13/2025 1:30 PM [facility] Protein, Urine Trace <=Trace mg/dL LAB URINALYSIS - AUTOMATED METHOD 07/13/2025 1:30 PM [facility] Glucose, Urine Negative Negative mg/dL LAB URINALYSIS - AUTOMATED METHOD 07/13/2025 1:30 PM [facility] Ketones, Urine Negative Negative mg/dL LAB URINALYSIS - AUTOMATED METHOD 07/13/2025 1:30 PM [facility] Urobilinogen, Urine 0.2 0.2 - 1.0 mg/dL LAB URINALYSIS - AUTOMATED METHOD 07/13/2025 1:30 PM [facility] Bilirubin, Urine Negative Negative LAB URINALYSIS - AUTOMATED METHOD 07/13/2025 1:30 PM [facility] Blood, Urine Negative Negative LAB URINALYSIS - AUTOMATED METHOD 07/13/2025 1:30 PM [facility] Urine Urine specimen obtained by clean catch procedure / Unknown Non-blood Collection / Unknown 07/13/2025 1:02 PM EDT 07/13/2025 1:20 PM EDT us Blade Louis MD LAB URINE ORDERABLES Final Resul t Performing Organization Address [facility] Co de Phone Number [facility] [address] [place] [address], [place] [phone] * Troponin I High Sensitivity (07/13/2025 1:01 PM EDT) [facility] High Sensitivity Troponin I 4 <=54 ng/L LAB CHEMISTRY METHOD 07/13/2025 1:50 PM EDT [facility] Blood Venous blood specimen / Unknown Venipuncture / Unknown 07/13/2025 1:01 PM EDT 07/13/2025 1:20 PM EDT Narrative [facility] - 07/13/2025 1:50 PM EDT High levels of biotin in samples may falsely decrease hsTroponin values. Use caution when interpreting hsTroponin results in patients taking biotin who exhibit renal impairment (eGFR <60) or in patients taking more than 20 mg/day of biotin. us Blade Louis MD LAB BLOOD ORDERABLES Final Resul t Performing Organization Address [facility] de Phone Number [facility] [address] [place] [address], [place] [phone] * CBC auto differential (07/13/2025 1:01 PM EDT) [facility] WBC 6.4 4.8 - 10.8 K/mcL LAB HEMETOLOGY METHOD 07/13/2025 1:29 PM EDT [facility] RBC 4.70 3.80 - 4.80 M/mcL LAB HEMETOLOGY METHOD 07/13/2025 1:29 PM EDT [facility] Hemoglobin 15.0 11.5 - 16.0 g/dL LAB HEMETOLOGY METHOD 07/13/2025 1:29 PM EDT [facility] Hematocrit 44.1 35.0 - 47.0 % LAB HEMETOLOGY METHOD [facility]13[facility]2025 1:[facility] MCV 93.4 79.0 - 98.0 FL LAB HEMETOLOGY METHOD 07/13/2025 1:29 PM [facility] MCH 31.8 27.0 - 32.0 pcg LAB HEMETOLOGY METHOD 07/13/2025 1:29 [facility] MCHC 34.0 32.0 - 37.0 g/dL LAB HEMETOLOGY METHOD 07/13/2025 1:29 PM [facility] RDW 12.8 11.0 - 15.0 % LAB HEMETOLOGY METHOD 07/13/2025 1:29 PM [facility] Platelets 264 130 - 400 K/mcL LAB HEMETOLOGY METHOD 07/13/2025 1:29 PM [facility] MPV 10.7 7.0 - 11.0 FL LAB HEMETOLOGY METHOD 07/13/2025 1:29 PM [facility] NRBC 0.0 <1.0 % LAB HEMETOLOGY METHOD 07/13/2025 1:29 PM [facility] NRBC Absolute 0.00 <0.10 K/mcL LAB HEMETOLOGY METHOD 07/13/2025 1:29 PM [facility] Neutrophils Relative 57.2 % LAB HEMETOLOGY METHOD 07/13/2025 1:29 PM [facility] Lymphocytes Relative 31.6 % LAB HEMETOLOGY METHOD 07/13/2025 1:29 PM [facility] Monocytes Relative 6.7 % LAB HEMETOLOGY METHOD 07/13/2025 1:29 PM [facility] Eosinophils Relative 3.8 % LAB HEMETOLOGY METHOD 07/13/2025 1:29 PM EDT [facility] Basophils Relative 0.5 % LAB HEMETOLOGY METHOD 07/13/2025 1:29 PM EDT [facility] Immature Granulocytes Relative 0.2 % LAB HEMETOLOGY METHOD 07/13/2025 1:29 PM EDT [facility] Neutrophils Absolute 3.66 1.50 - 7.00 K/mcL LAB HEMETOLOGY METHOD 07/13/2025 1:29 PM EDT [facility] Lymphocytes Absolute 2.02 1.00 - 5.00 K/mcL LAB HEMETOLOGY METHOD 07/13/2025 1:29 PM EDT [facility] Monocytes Absolute 0.43 0.20 - 1.00 K/mcL LAB HEMETOLOGY METHOD 07/13/2025 1:29 PM EDT [facility] Eosinophils Absolute 0.24 0.00 - 0.50 K/mcL LAB HEMETOLOGY METHOD 07/13/2025 1:29 PM EDT [facility] Basophils Absolute 0.03 0.00 - 0.20 K/mcL LAB HEMETOLOGY METHOD 07/13/2025 1:29 PM EDT [facility] Immature Granulocytes Absolute 0.01 0.00 - 0.03 K/mcL LAB HEMETOLOGY METHOD 07/13/2025 1:29 PM EDT [facility] Blood Venous blood specimen / Unknown Venipuncture / Unknown 07/13/2025 1:01 PM EDT 07/13/2025 1:20 PM EDT us Blade Louis MD LAB BLOOD ORDERABLES Final Resul t [facility] [address] [place] [address], * APTT (07/13/2025 1:01 PM EDT) aPTT 27.1 24.1 - 39.3 sec LAB COAGULATION METHOD 07/13/2025 1:40 PM EDT [facility] Blood Venous blood specimen / Unknown Venipuncture / Unknown 07/13/2025 1:01 PM EDT 07/13/2025 1:20 PM EDT us Blade Louis MD LAB BLOOD ORDERABLES Final Resul t Performing Organization Address City/[facility] Co de Phone Number [facility] [address] [place] [address], [place] [phone] * Protime-INR (07/13/2025 1:01 PM EDT) Protime 12.1 10.6 - 13.9 sec LAB COAGULATION METHOD 07/13/2025 1:40 PM EDT [facility] INR 1.0 LAB COAGULATION METHOD 07/13/2025 1:40 PM EDT [facility] Blood Venous blood specimen / Unknown Venipuncture / Unknown 07/13/2025 1:01 PM EDT 07/13/2025 1:20 PM EDT us Blade Louis MD LAB BLOOD ORDERABLES Final Resul t Performing Organization Address [facility] de Phone Number [facility] [address] [place] [address], [place] [phone] * Magnesium (07/13/2025 1:01 PM EDT) Magnesium 2.2 1.9 - 2.6 mg/dL LAB CHEMISTRY METHOD 07/13/2025 3:34 PM EDT [facility] Blood Venous blood specimen / Unknown Venipuncture / Unknown 07/13/2025 1:01 PM EDT 07/13/2025 1:19 PM EDT us Blade Louis MD LAB BLOOD ORDERABLES Final Resul t Performing Organization Address City/[facility] Co de Phone Number [facility] [address] [place] [address], * (ABNORMAL) Comprehensive Metabolic Panel (CMP) (07/13/2025 1:01 PM EDT) Sodium 139 133 - 145 mmol/L LAB CHEMISTRY METHOD 07/13/2025 3:34 PM EDT [facility] Potassium 4.9 3.5 - 5.5 mmol/L LAB CHEMISTRY METHOD 07/13/2025 3:34 PM T [facility] Comment:Hemolysis present Chloride 108 96 - 110 mmol/L LAB CHEMISTRY METHOD 07/13/2025 3:34 PM [facility] CO2 23 21 - 32 mmol/L LAB CHEMISTRY METHOD 07/13/2025 3:34 PM [facility] Anion Gap 8 3 - 11 LAB CHEMISTRY METHOD 07/13/2025 3:34 PM [facility] Glucose 91 70 - 100 mg/dL LAB CHEMISTRY METHOD 07/13/2025 3:34 PM [facility] BUN 17 5 - 25 mg/dL LAB CHEMISTRY METHOD 07/13/2025 3:34 PM [facility] Creatinine 0.81 0.50 - 1.10 mg/dL LAB CHEMISTRY METHOD 07/13/2025 3:34 [facility] eGFR 87 >=60 mL/min/1. 73m2 LAB CHEMISTRY METHOD 07/13/2025 3:34 PM [facility] Comment:Calculation based on the Chronic Kidney Disease Epidemiology Collaboration (CKD-EPI) equation refit without adjustment for race. BUN/Creatinine Ratio 21.0 LAB CHEMISTRY METHOD 07/13/2025 3:34 PM [facility] Calcium 9.3 8.5 - 10.5 mg/dL LAB CHEMISTRY METHOD 07/13/2025 3:34 PM [facility] AST (SGOT) 113(H) 10 - 42 unit/L LAB CHEMISTRY METHOD 07/13/2025 3:34 PM EDT [facility] ALT (SGPT) 148(H) 10 - 60 unit/L LAB CHEMISTRY METHOD 07/13/2025 3:34 PM EDT [facility] Alkaline Phosphatase 75 42 - 121 unit/L LAB CHEMISTRY METHOD 07/13/2025 3:34 PM EDT [facility] Total Protein 7.2 6.0 - 8.0 g/dL LAB CHEMISTRY METHOD 07/13/2025 3:34 PM EDT [facility] Albumin 3.6 3.2 - 5.0 g/dL LAB CHEMISTRY METHOD 07/13/2025 3:34 PM EDT [facility] Total Bilirubin 1.2 0.0 - 1.4 mg/dL LAB CHEMISTRY METHOD 07/13/2025 3:34 PM EDT [facility] Blood Venous blood specimen / Unknown Venipuncture / Unknown 07/13/2025 1:01 PM EDT 07/13/2025 1:19 PM EDT us Blade Louis MD LAB BLOOD ORDERABLES Final Resul t [facility] [address] [place] [address], [place] [phone] * XR Chest 1 View (07/13/2025 1:00 [...] Signed Date: 07/13/2025 13:12 ET Workstation ID: [id number] Transcribed By: Self Edit Transcribed Date: 07/13/2025 [...] Signed Date: 07/13/2025 13:12 ET Workstation ID: [id number] Transcribed By: Self Edit Transcribed Date: 07/13/2025 [...] GEMUSE QTc 439 ms GEMUSE P Wave [place] 35 degrees GEMUSE R [place] -3 degrees GEMUSE T [place] 4 degrees GEMUSE ECG Interpretation Normal sinus [...] AM EDT Narrative 06/15/2019 2:40 PM EDT [facility] Diagnostic Imaging Department [address] [place] [id number] Patient: ARTEMIO CALLES./Age/Sex: 1970 - 49 - F Unit#: [id number] Location/Status: [facility] CLI Mnemonic/Ordering Site: DIGSC/SPMAM Ordering Physician: ELLY ROB MD [facility] Screening Digital - 06/15/19 - 1052 EXAM: [facility] Screening Digital EXAM DATE AND TIME: 06/15/2019 10:52 AM HISTORY: Screening. COMPARISON: 05/21/18 TECHNIQUE: CC and MLO views of both breasts were obtained using full field digital mammography. Bilateral digital breast tomosynthesis was performed in the MLO projection. Computer aided detection with the MommyCoach 7.2-H was employed. TISSUE DENSITY: b. There [...] RECOMMENDATION(S): 1: Special mammographic view(s) needed LEFT 52048, 51325 3340F, 7025F Dictating Physician: AURE HERRERA MD Electronically Signed by: AURE HERRERA MD Dic Date/Time: 06/15/19 1438 Sign date/Time: 06/15/19 1440 Procedure Note Aure Herrera - 10/09/2022 [facility] Diagnostic Imaging Department [address] [place] [id number] Patient: ARTEMIO CALLES /Age/Sex: 1970 - 49 - F Unit#: [id number] Location/Status: [facility] Mnemonic/Ordering Site: [facility] Ordering Physician: ELLY ROB MD [facility] Screening Digital - 06/15/19 - 1052 EXAM: [facility] Screening Digital EXAM DATE AND TIME: 06/15/2019 10:52 AM HISTORY: Screening. COMPARISON: 05/21/18 TECHNIQUE: CC and MLO views of both breasts were obtained using fullfield digital mammography. Bilateral digital breast tomosynthesis was performedin the MLO projection. Computer aided detection with the MommyCoach 7.2-Hwas employed. TISSUE DENSITY: b. There are [...] RECOMMENDATION(S): 1: Special mammographic view(s) needed LEFT 93118, 54398 3340F, 7025F Dictating Physician: AURE HERRERA MD Electronically Signed by: AURE HERRERA MD Dic Date/Time: 06/15/19 1438 Sign date/Time: 06/15/19 1440 Elly Rob MD IMG BI PROCEDURES Final R esult from Last 3 Months or Most Recently Relevant to Health Maintenance Insurance MEDICAID - [place] Care Teams Devulcanizer Loader Relationship Specialty Start Date End Date Jo Ann Falcon FNP PCP - General Internal Medicine 05/26/18
== END 2025-08-18 07:54 | disposition home or self-care (01) ==
LOC: HO.MRI 07:53
PROVIDERS: PCP Internal Medicine; Visit Provider Physician Assistant
DX: M54.16 Radiculopathy, lumbar region (principal)
CPT/HCPCS: 72148; 99212

== ENCOUNTER 2025-08-18 08:54 | Outpatient (AMB) | payer MEDICAID, SELFPAY ==
--- NOTE | 2025-08-18 09:30 | HO.SPINEOV ---
Intake Visit Reasons: 2nd post op and F/u on MRI Intake Note: Ms. Calles is here today for her 2nd post op and a F/u on the results to her MRI. Electromagnet Crane Operator Required: Yes Electromagnet Crane Operator Language: [employer] Laborer Services: Electromagnet Crane Operator Present Electromagnet Crane Operator Name: Rema Cain LM Allergies No Known Allergies Allergy (Verified 08/18/25 09:31) Assessment & Plan Assessment & Plan (1) Lumbar radiculopathy: Code(s): M54.16 - Radiculopathy, lumbar region Category: Medical Plan Mary is a 55 year old female who underwent left-sided SI joint fusion with Dr. Marcos on 06/15/2025. Previously reporting excellent relief of her pain after surgery, however pain returned after rolling over in bed. I sent the patient for a CT pelvis, which appeared to show stable placement of her transfasten implant. Therefore, I sent her for a lumbar MRI to rule out nerve root impingement that may be contributing to this issue. The patient had her MRI this morning just before coming into clinic for her visit. I have not yet had time to review it with Dr. Marcos. On initial review it does appear to show fairly significant left-sided compression at L5-S1, however this may be confounded by artifact from surgery. No new neurological deficits. The patient ambulates with a slightly antalgic gait favoring the right side. She ambulates with the assistance of a cane. Her posterior incision site is closed and well healed. I will review the patient's MRI imaging with my attending neurosurgeon later today, and call the patient to update her regarding her results. Harpreet Marcos MD,PhD [facility] Coding Level of Care Code Global (66849) Diagnoses Lumbar radiculopathy M54.16
--- OUTSIDE RECORDS SUMMARY | 2025-08-18 09:54 | XMS_ITS | Data Portability ---
Author Organization [place] [facility], [facility] Address [address] [place] [address] Assessment Encounter Date Assessment Date Assessment LastModified by Organization Details LastModified Time 01/08/2024 01/08/2024 I am seeing the patient today under the supervision of Bethanie Mayers PA-C and Dr. Wilson who was available but who did not see the patient. The patient is Syriac-speaking and founder and chief executive officer was utilized. HPI: 53-year-old female who last [...] referral - eval for injections 2023 024 [facility], [address] [place] [address], [phone], 4 07:45:25 Procedures None recorded. Surgeries None recorded. Imaging None recorded. Medication Orders gabapentin 100 mg capsule 2023 024 [id number], [address] [place], [address], 4 12:39:58 Patient TargetsNo targets recorded. Patient InstructionsNo instructions recorded. Reason for Referral Pain Management Referral for Low back pain eval for injections Referring Physician: Bethanie Mayers, Orthopedic Surgery, [id number] Encounter Date: 01/08/2024 Results Created Date Observation [...] Updated DateTime 01/08/2024 165.1 cm 33.3 kg/m2 26193.47 g Earline valdez [place] [facility] 01/08/2024 10:29:34 Social History None [...] ICD10 Code Diagnosis IMO Codes Diagnosis Note [id number] MAUREEN [address] [place] [phone] 01/08/2024 10:06:55 01/28/2024 15:06:59 Low back pain [id number] M54.50 Health Concerns Section Related Observation LastModified by Organization Detai ls LastModified Time None Recorded Concern Status LastModified by Organization Details LastModified Time None Recorded Advance Directives Directive None Recorded Payers Insurance Date Sequence Insurance Name Policy Number Policy Farmer Covered Member ID Farmer Member ID Guarantor Name 04/20/2024 1 [facility]MEDICAID H[facility]) [id number] Mary Calles [id number] Mary Calles 04/01/2024 1 [facility] [id number] Mary Calles [id number] Mary Calles OBGyn Episode No OBEpisode recorded.
== END 2025-08-18 09:52 | disposition home or self-care (01) ==
LOC: HO.HNS 08:54
PROVIDERS: PCP Internal Medicine; Visit Provider Physician Assistant
DX: M54.16 Radiculopathy, lumbar region (principal)
CPT/HCPCS: 99024